=== PATIENT | female | born 1960 | race Caucasian/White ===

== ENCOUNTER 2020-08-25 10:07 | Outpatient (REF) | payer BC, SELFPAY ==
--- NOTE | ~2020-08-25 | US_ITS ---
EXAMINATION: US VENOUS ULTRASOUND WITH DOPPLER LOWER EXTREMITY, RIGHT CLINICAL INFORMATION: Localized edema. COMPARISON: None TECHNIQUE: Ultrasound of the deep veins is performed from the hip to the calf with compression sonography and color and pulse Doppler assessment. Spectral analysis with color-flow imaging is performed. FINDINGS: There is normal venous compression and respiratory variation and augmented flow. The visualized common femoral vein, superficial femoral vein, profunda femoral vein, popliteal vein, and the trifurcation region shows no evidence of deep venous thrombosis. There is no significant popliteal fossa cyst. There is a small Arvizu's cyst measuring 4.7 x 1.2 x 3.4 cm along the medial aspect of the popliteal fossa. If the patient's symptoms persist, follow-up ultrasound in 5 days 7 days might be of value to exclude proximal propagation from a nonvisualized calf vein. US/US venous duplex LE RT IMPRESSION: No evidence of DVT. Small Arvizu's cyst measuring 4.7 x 1.2 x 3.4 cm.
--- NOTE | ~2020-08-25 | XR_ITS ---
EXAMINATION: XR KNEE, RIGHT CLINICAL INFORMATION: Pain COMPARISON: Right lower leg x-ray October 2013. TECHNIQUE: Two views of the right knee. FINDINGS: There is a 3 component knee replacement in satisfactory position. No fracture, dislocation or x-ray evidence of loosening is seen. There is a small joint effusion. XR/XR knee RT 2V IMPRESSION: Satisfactory appearance of right knee replacement.
== END 2020-08-25 10:08 | disposition home or self-care (01) ==
LOC: HO.US 10:07
PROVIDERS: PCP Internal Medicine; Visit Provider Internal Medicine
DX: Z00.00 Encounter for general adult medical examination without abnormal findings (principal); R09.89 Other specified symptoms and signs involving the circulatory and respiratory systems; R60.0 Localized edema; E11.9 Type 2 diabetes mellitus without complications; E03.9 Hypothyroidism, unspecified; M25.561 Pain in right knee; Z20.822 Contact with and (suspected) exposure to COVID-19
CPT/HCPCS: 73560; 93971; U0003; U0005

== ENCOUNTER 2020-08-29 07:21 | Outpatient (REF) | payer BC, SELFPAY ==
[2020-08-29 08:47] LABS: Eosinophils Absolute Auto 0.2 X10*3/uL (0.0-0.4); Eosinophils Percent Auto 4.2 % (0-4); Hematocrit 36.8 % (37-47); Hemoglobin 12.2 g/dl (12.0-16.0); Imm Gran Abs Auto 0.01 X10*3/uL (0.00-0.03); Imm Gran Pct Auto 0.3 % (0.0-0.4); Lymphocytes Absolute Auto 1.4 X10*3/uL (1.2-4.9); Lymphocytes Percent Auto 37.5 % (20-40); MANUAL DIFF FLAG SCAN; Mean Corpuscular HGB Conc 33.2 g/dl (31.0-35.0); Mean Corpuscular Hemoglobin 29.1 pg (27.0-33.0); Mean Corpuscular Volume 87.8 fL (80-98); Mean Platelet Volume 9.7 fL (9.4-12.3); Monocytes Absolute Auto 0.4 X10*3/uL (0.1-1.2); Monocytes Percent Auto 9.1 % (2-11); Neutrophils Absolute Auto 1.8 X10*3/uL (2.0-8.3); Neutrophils Percent Auto 47.9 % (45-73); Platelet Count 232 X10*3/uL (160-400); Red Blood Count 4.19 X10*6/uL (4.20-5.50); Red Cell Distribution Width 14.7 % (11.0-16.0); SCAN SMEAR FLAG 1; White Blood Count 3.8 X10*3/uL (4.8-10.8)
[2020-08-29 09:06] LABS: SLIDE REVIEW VERIFIED
[2020-08-29 09:21] LABS: Alanine Aminotransferase 17 U/L (0-31); Albumin Level 4.1 g/dL (3.5-5.0); Alkaline Phosphatase 87 U/L (39-117); Anion Gap 11 (12-20); Aspartate Amino Transferase 23 U/L (5-31); Bilirubin Total 0.6 mg/dL (0.0-1.0); Blood Urea Nitrogen 12 mg/dL (9-16); Carbon Dioxide 28 mmol/L (22-29); Chloride 104 mmol/L (96-108); Cholesterol 176 mg/dL; Estimated Glomerular Filt Rate 56; Glucose Fasting 88 mg/dL (60-99); HDL Cholesterol 66 mg/dL; LDL Cholesterol Calculated 98 mg/dl; Sodium 139 mmol/L (135-145); Total Protein 6.2 g/dL (6.5-8.0); Triglycerides 62 mg/dL
== END 2020-08-29 07:22 | disposition home or self-care (01) ==
LOC: HO.LAB 07:21
PROVIDERS: PCP Internal Medicine; Visit Provider Internal Medicine
DX: Z00.00 Encounter for general adult medical examination without abnormal findings (principal); E03.9 Hypothyroidism, unspecified; E11.9 Type 2 diabetes mellitus without complications
CPT/HCPCS: 36415; 80053; 80061; 84443; 85025

== ENCOUNTER → 2020-09-02 10:53 | Outpatient (BNVA) | payer BC, SELFPAY | PROVIDERS: PCP Internal Medicine; Visit Provider Orthopaedic Surgery ==

== ENCOUNTER 2021-03-06 13:17 | Outpatient (REF) | payer BC, SELFPAY ==
--- NOTE | ~2021-03-06 | XR_ITS ---
EXAMINATION: XR KNEE, RIGHT CLINICAL INFORMATION: Pain right knee. Prior arthroplasty. COMPARISON: Radiographs right knee 08/25/2020. TECHNIQUE: Axial patellar view is performed. FINDINGS: There is been prior total knee arthroplasty. The visualized hardware is intact. There is no fracture or destructive process or periostitis. The retropatellar prosthesis is slightly lateralized in position. XR/XR knee RT 1V IMPRESSION: 1. Hardware intact. No destructive process. 2. Mild lateralization patella.
== END 2021-03-06 13:18 | disposition home or self-care (01) ==
LOC: HO.HOSX 13:17
PROVIDERS: PCP Internal Medicine; Visit Provider Physician Assistant
DX: S83.521D Sprain of posterior cruciate ligament of right knee, subsequent encounter (principal); Z96.651 Presence of right artificial knee joint
CPT/HCPCS: 73560

== ENCOUNTER 2021-03-09 15:42 | Outpatient (REF) | payer BC, SELFPAY ==
[2021-03-09 16:21] LABS: C Reactive Protein 0.05 mg/dL (< or = 0.50)
[2021-03-09 16:36] LABS: Erythrocyte Sedimentation Rate 2 MM/HR (0-20)
== END 2021-03-09 15:43 | disposition home or self-care (01) ==
LOC: HO.LAB 15:42
PROVIDERS: PCP Internal Medicine; Visit Provider Orthopaedic Surgery
DX: M25.569 Pain in unspecified knee (principal); S83.529A Sprain of posterior cruciate ligament of unspecified knee, initial encounter; Z96.651 Presence of right artificial knee joint
CPT/HCPCS: 36415; 85652; 86140

== ENCOUNTER → 2021-04-15 09:49 | Outpatient (BNVA) | payer BC, SELFPAY | PROVIDERS: PCP Internal Medicine; Visit Provider Orthopaedic Surgery ==

== ENCOUNTER → 2021-05-13 15:10 | Outpatient (REF) | payer BC, SELFPAY ==
--- NOTE | 2021-05-13 15:16 | ECG_ITS ---
Test Reason : PREOP Blood Pressure : / mmHG Vent. Rate : 058 BPM Atrial Rate : 058 BPM P-R Int : 188 ms QRS Dur : 080 ms QT Int : 444 ms P-R-T Axes : 063 023 030 degrees QTc Int : 435 ms Sinus bradycardia T inversion anteroseptal leads- ischemia vs non-specific finding When compared with ECG of 28-JUL-2004 11:26, T inversion more prominent Referred By: Luis Daniel Lay Electronically Signed By:VLADISLAV IRVIN
[2021-05-13 15:32] LABS: MANUAL DIFF FLAG NO
[2021-05-13 15:44] LABS: Basophils Percent Auto 0.5 % (0-2); Eosinophils Absolute Auto 0.1 X10*3/uL (0.0-0.4); Eosinophils Percent Auto 1.3 % (0-4); Hematocrit 36.2 % (37.0-47.0); Hemoglobin 12.5 g/dl (12.0-16.0); Imm Gran Abs Auto 0.01 X10*3/uL (0.00-0.03); Imm Gran Pct Auto 0.2 % (0.0-0.4); Lymphocytes Absolute Auto 2.3 X10*3/uL (1.2-4.9); Lymphocytes Percent Auto 37.8 % (20-40); Mean Corpuscular HGB Conc 34.5 g/dl (31.0-35.0); Mean Corpuscular Hemoglobin 30.7 pg (27.0-33.0); Mean Corpuscular Volume 88.9 fL (80.0-98.0); Mean Platelet Volume 9.6 fL (9.4-12.3); Monocytes Absolute Auto 0.4 X10*3/uL (0.1-1.2); Monocytes Percent Auto 7.3 % (2-11); Neutrophils Absolute Auto 3.2 x10*3/uL (2.0-8.3); Neutrophils Percent Auto 52.9 % (45-73); Platelet Count 296 X10*3/uL (160-400); Red Blood Count 4.07 X10*6/uL (4.20-5.50); Red Cell Distribution Width 12.4 % (11.0-16.0)
[2021-05-13 16:25] LABS: Anion Gap 11 (12-20); Blood Urea Nitrogen 20 mg/dL (9-16); Calcium 9.3 mg/dL (8.4-10.2); Carbon Dioxide 28 mmol/L (22-29); Chloride 100 mmol/L (96-108); Estimated Glomerular Filt Rate > 60; Glucose Random 110 mg/dL (60-115); Potassium 4.1 mmol/L (3.3-5.1); Sodium 135 mmol/L (135-145)
== END ==
LOC: HO.CARD 15:10
PROVIDERS: PCP Internal Medicine; Visit Provider Orthopaedic Surgery
DX: Z01.810 Encounter for preprocedural cardiovascular examination (principal); Z01.812 Encounter for preprocedural laboratory examination
CPT/HCPCS: 36415; 80048; 85025; 93005

== ENCOUNTER → 2021-05-14 11:19 | Outpatient (BNVA) | payer BC, SELFPAY | PROVIDERS: PCP Internal Medicine; Visit Provider Physician Assistant | DX: Z13.89 Encounter for screening for other disorder (principal) ==

== ENCOUNTER 2021-05-19 06:32 | Inpatient (IN) | payer BC, SELFPAY ==
[2021-05-05 08:15] VITALS: BMI 26.6
[2021-05-14 16:52] LABS: MRSA Nasal PCR NEGATIVE (Negative); SA Nasal PCR NEGATIVE (Negative)
--- NOTE | 2021-05-18 08:48 | P.CONAN_ITS ---
Documented by User: Francisca Henson NP 05/18/21 08:57 HPI - Anesthesia Eval Consult details Narrative: 60yo F for Right Knee Total Revision Optimized per PCP s/p R TKA 2004 [facility] Active Problems Active Problems: All Active Problems (Updated 05/14/21 @ 18:44 by Lore Vargas PA-C) Failed arthroplasty (Acute) Physical exam (Acute) Leg pain (Acute) History of total right knee replacement (TKR) (Acute) Knee pain (Acute) Tear of PCL (posterior cruciate ligament) of knee (Acute) Pre-op exam (Acute) Hyperlipidemia (Acute) Past Medical History Medical History History of skin cancer Hx of migraines Hyperlipidemia Family History Family History Mother No problems noted. Father No problems noted. Son Substance use disorder Surgical History Surgical History History of bunionectomy of left great toe History of carpal tunnel surgery of right wrist History of hysterectomy History of meniscectomy of right knee History of total right knee replacement Hx of colonoscopy Social History Social History Housing: House Are you a primary menagerie caretaker to a significant other at home: No Do you presently have visiting nurse or other home services: No Patient Tobacco Use Status: Never used Tobacco e-Cigarette/Vaping Use: Never Used Second Hand Smoke Exposure: No Use of substances other than those prescribed or required for medical reasons: No Have you been hit, kicked, punched, or otherwise hurt by someone within the past year? 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 aureus Screen NEGATIVE Nasal MRSA/S.aureus Interp SEE NOTE Blood Type O Positive Antibody Screen NEGATIVE Laboratory Tests 05/13/21 05/13/21 15:31 15:31 WBC 6.0 Hgb 12.5 Hct 36.2 L Plt Count 296 Sodium 135 Potassium 4.1 Chloride 100 Carbon Dioxide 28 BUN 20 H Creatinine 0.86 Narrative Narrative: EKG 04/2021 Vent. Rate : 058 BPM ? ? Atrial Rate : 058 BPM ?? P-R Int : 188 ms? QRS Dur : 080 ms ? ? QT Int : 444 ms ? ? ? P-R-T Axes : 063 023 030 degrees ?? QTc Int : 435 ms ? Sinus bradycardia T inversion anteroseptal leads- ischemia vs non-specific finding When compared with ECG of 28-JUL-2004 11:26, T inversion more prominent? Assessment and Plan Assessment Anesthesia Assessment: Chart Reviewed Documented by User: Robles Rivera MD 05/19/21 08:53 PMFSH Past Medical History Medical History History of skin cancer Hx of migraines Hyperlipidemia Family History Family History Mother No problems noted. Father No problems noted. Son Substance use disorder Family history of problems with anesthesia: No Surgical History Surgical History History of bunionectomy of left great toe History of carpal tunnel surgery of right wrist History of hysterectomy History of meniscectomy of right knee History of total right knee replacement Hx of colonoscopy History of Problems with Anesthesia: No Social History Social History Housing: House Are you a primary menagerie caretaker to a significant other at home: No Do you presently have visiting nurse or other home services: No Patient Tobacco Use Status: Never used Tobacco e-Cigarette/Vaping Use: Never Used Second Hand Smoke Exposure: No Use of substances other than those prescribed or required for medical reasons: No Have you been hit, kicked, punched, or otherwise hurt by someone within the past year? 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: No Hearing needs: No Vision needs: No Meds Allergies Allergy/AdvReac Type Severity Reaction Status Date / Time doxycycline [DOXYCYCLINE] Allergy Unknown RASH Verified 05/19/21 06:37 Exam Airway Mallampati Class: II TM Dist: >3cm Neck ROM: Full Loose/Missing/Broken Teeth: No Assessment and Plan Assessment Anesthesia Assessment: Anesthesia Plan Discussed Final Anesthetic Review Family History of Problems with Anesthesia: No History of Problems with Anesthesia: No NPO: Yes ASA Class: II Final Preanesthetic Review: No Changes in Pt Med Stat, Meds/Allgs Chart Reviewed, Consent Obtained/Reviewed and Anes Risks/Benef Reviewed Patient Risk: Low Procedure Risk: Intermediate Anesthetic Plan Anesthetic Plan: MAC:, Spinal and Regional Block Disposition: Standard PACU
[2021-05-19] VITALS (9 sets, daily range): BP systolic 92–127; BP diastolic 51–66; PULSE 62–80; RESP 10–18; TEMP 36.3–36.9; O2SAT 96–100
--- NOTE | ~2021-05-19 | XR_ITS ---
EXAMINATION: XR KNEE, RIGHT CLINICAL INFORMATION: Post right knee arthroplasty COMPARISON: Previous x-rays July 2020 and February 2021 TECHNIQUE: Portable AP and crosstable lateral views of the right knee. FINDINGS: There is a 3 component right knee replacement. There is new cement seen adjacent to the femoral and tibial components. No fracture or dislocation is seen. There are postoperative changes to the soft tissues. XR/XR knee RT 2V IMPRESSION: Right knee replacement.
--- NOTE | ~2021-05-19 | XR_ITS ---
EXAMINATION: XR KNEE, RIGHT CLINICAL INFORMATION: Post right knee replacement COMPARISON: Previous x-rays from earlier the same day TECHNIQUE: 8 intraoperative views of the right knee. FINDINGS: There is a 3 component right knee replacement. There is cement adjacent to the femoral and tibial components. There is a spacer between the femoral and tibial components. No fracture or dislocation is seen. There are postoperative changes to the soft tissues. XR/XR knee RT 2V IMPRESSION: Fluoroscopy guidance for revision of right knee replacement.
[2021-05-19 07:16] LABS: COVID-19 Test Negative (Negative)
[2021-05-19] MEDS: Lactated Ringers 1,000 ML 100 ML IVCONT ×2 (07:22→16:56)
--- NOTE | 2021-05-19 07:38 | MHC.SHP ---
Pre-Procedural Eval Section A Date of Service: 05/19/21 The patient is an INPATIENT: No Changes since office visit: No Cold of Flu in the past 2 weeks, No New Medical Problems, No Changes in Medication and No Patient answered all questions The History & Physical has been completed within 30 days and I have reviewed it.: Yes Section B Chief Complaint: REVISION RT TKA Allergies: Allergies Allergy/AdvReac Type Severity Reaction Status Date / Time doxycycline [DOXYCYCLINE] Allergy Unknown RASH Verified 05/19/21 06:37 Plan I have reviewed the history and physical and performed a pertinent physical examination on my patient. No changes have occurred unless specified.
[2021-05-19] MEDS: Ketorolac Tromethamine 30 MG/ML VIAL 15 MG IVPUSH (14:38)
[2021-05-19] MEDS: oxyCODONE HCl Immed Release 5 MG TABLET PO (14:39)
[2021-05-19] MEDS: ceFAZolin Sodium/Dextrose,Iso 2 GM/50 ML PIGGYBACK IV (15:04)
--- NOTE | 2021-05-19 15:10 | PC.NURSE ---
maria del rosario steel gave nurse to nurse report
--- NOTE | 2021-05-19 16:36 | P.BOP_ITS ---
Brief Operative Note Date of Service: 05/19/21 Pre-op diagnosis: right knee prosthetic instability Post-op diagnosis: same Procedure: Revision right TKA Implants: [employer] TS Size 1 femur with 15 mm distal and 5 mm posterior augments, Size 1 tibia with 5 mm augment. 29 a patella, 31TS insert Surgeon: Luis Daniel Lay MD Anesthesia: regional and spinal Was an [employer] District Clerk used for this Procedure?: Yes [employer] Clerk: Lore Vargas Estimated blood loss (mL): 300 IV fluids (mL): 2,000 Pathology: none sent Condition: stable Disposition: PACU
--- NOTE | 2021-05-19 17:22 | P.CONIM_ITS ---
History of Present Illness Data of Consult Service Date: 05/19/21 Primary Care Provider: Donald Knox MD HPI Reason for consult: hld 60F prsented for elective right total knee revision, she has history of HLD c ontrolled with lipitor. doing well postop, denies chest pain, fever, chills, sob. Review of Systems Review of Systems: Yes all other systems are reviewed and are negative [facility] Medical History History of skin cancer Hx of migraines Hyperlipidemia Family History Mother No problems noted. Father No problems noted. Son Substance use disorder Surgical History History of bunionectomy of left great toe History of carpal tunnel surgery of right wrist History of hysterectomy History of meniscectomy of right knee History of total right knee replacement Hx of colonoscopy Social History Household Members: Spouse Housing: House Are you a primary primary care nurse to a significant other at home: No Do you presently have visiting nurse or other home services: No Patient Tobacco Use Status: Never used Tobacco e-Cigarette/Vaping Use: Never Used Second Hand Smoke Exposure: No Use of substances other than those prescribed or required for medical reasons: No Have you been hit, kicked, punched, or otherwise hurt by someone within the past year? If so, by whom?: No Do you feel safe in your current relationship?: Yes Is there a partner from a previous relationship who is making you feel unsafe now?: No Are you made to feel afraid or neglected: No Are you DNR?: No Advance Directives: No Advance Directives Information Provided: Yes (Given with Pre-op information) Advance Directives on File: No Do you have thoughts of harming others: None Do you have a plan to hurt others: No Plan Recently lost weight without trying: No Eating poorly because of decreased appetite: No Nutrition Risks: No Nutritional Risk Patient : No : No Poor oral hygiene: No ([place]) service: No Current occupational status: employed 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[place] 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: No Hearing needs: No Vision needs: No Meds Allergies Allergy/AdvReac Type Severity Reaction Status Date / Time doxycycline [DOXYCYCLINE] Allergy Unknown RASH Verified 05/19/21 06:37 Active Medications: Current Medications Acetaminophen (Acetaminophen 325 Mg Tablet) 650 mg PO Q6H PRN PRN Reason: Pain, Mild (Pain Scale 1-3) Aspirin (Aspirin 325 Mg Tablet) 325 mg PO BID [facility] Atorvastatin Calcium (Atorvastatin Calcium 20 Mg Tablet) 20 mg PO DAILY [facility] Celecoxib (Celecoxib 200 Mg Capsule) 200 mg PO BID [facility] Docusate Sodium (Docusate Sodium 100 Mg Capsule) 100 mg PO BID [facility] Hydromorphone HCl (Hydromorphone Hcl 1 Mg/Ml Syringe) 0.25 mg IVPUSH Q4H PRN; Protocol PRN Reason: Pain, Severe (Pain Scale 7-10) Lactated Ringer's (Lr) 1,000 mls @ 100 mls/hr IVCONT .Q10H [facility] Last Admin: 05/19/21 16:56 Dose: 100 mls/hr Documented by: Cefazolin Sodium/Dextrose (Ancef) 2 gm in 50 mls @ 100 mls/hr IV POSTOP [facility] Last Infusion: 05/19/21 16:40 Dose: Infused Documented by: Ondansetron HCl (Ondansetron Hcl 4 Mg/2 Ml Vial) 4 mg IVPUSH Q8H PRN PRN Reason: Nausea and Vomiting Oxycodone HCl (Oxycodone Hcl Immed Release 5 Mg Tablet) 5 mg PO Q4H PRN PRN Reason: Pain, Moderate (Pain Scale 4-6 Oxycodone HCl (Oxycodone Hcl Er 10 Mg Tab.Er.12h) 10 mg PO BID [facility] Sodium Chloride (0.9 % Sodium Chloride Flush 3 Ml Syringe) 3 ml IVFLUSH QSHIFT [facility] Last Admin: 05/19/21 16:35 Dose: Not Given Documented by: Trazodone HCl (Trazodone Hcl 50 Mg Tablet) 50 mg PO BEDTIME [facility] Physical Exam Vital Signs and Narrative: Vital Signs: Last Vital Signs Temp 97.3 F 05/19/21 15:41 Pulse 67 05/19/21 15:41 Resp 16 05/19/21 15:41 BP 107/59 L 05/19/21 15:41 Pulse Ox 99 05/19/21 15:41 BMI result Body Mass Index 26.6 General: AO X 3, no acute distress Resp: CTA bilateral, no accessory muscles used CVS: S1,S2,RRR GI: soft, non tender, non distended Neuro: motor grossly intact, alert Psych: appropriate affect, appropriate insight Results Labs Labs: Laboratory Results - last 24 hr 05/19/21 06:35 COVID-19 (NAUN) Negative COVID-19 Clin Com See Note Imaging Radiologist's Impressions: Impressions Knee X-Ray 05/19/21 11:50 IMPRESSION: Right knee replacement. Knee X-Ray 05/19/21 13:43 IMPRESSION: Fluoroscopy guidance for revision of right knee replacement. Assessment and Plan (1) Hyperlipidemia: Status: Acute Plan 60F presented for right knee revision HLD continue statin patient appears medically stable, please recall as needed.
--- NOTE | 2021-05-19 19:17 | PC.NURSE ---
1814 Got patient oob, started ambulating with a walker when patient c/o dizziness and started wheezing saying she couldnt breath. Sat patint in chair and got oxygen, she was able to take slow breaths and wheezing subsided. Dr Moreno was called into the room, vss, B/P 102 54 manual O2 sats 100%. Pt back in bed, feels much better.
[2021-05-19] MEDS: Docusate Sodium 100 MG CAPSULE PO (20:17)
[2021-05-19] MEDS: Celecoxib 200 MG CAPSULE PO (20:17)
[2021-05-19] MEDS: oxyCODONE HCl ER 10 MG TAB.ER.12H PO (20:17)
[2021-05-19] MEDS: traZODone HCL 50 MG TABLET PO (20:18)
[2021-05-19] MEDS: HYDROmorphone HCl 1 MG/ML SYRINGE 0.25 MG IVPUSH (20:18)
[2021-05-19] MEDS: 0.9 % Sodium Chloride Flush 3 ML SYRINGE IVFLUSH (20:21)
[2021-05-20] VITALS (13 sets, daily range): BP systolic 85–133; BP diastolic 46–65; PULSE 62–74; RESP 14–18; TEMP 36.8–37.7; O2SAT 96–100
[2021-05-20 05:42] LABS: MANUAL DIFF FLAG NO
[2021-05-20 05:46] LABS: Basophils Percent Auto 0.3 % (0-2); Hematocrit 26.8 % (37.0-47.0); Hemoglobin 9.1 g/dl (12.0-16.0); Imm Gran Abs Auto 0.02 X10*3/uL (0.00-0.03); Imm Gran Pct Auto 0.2 % (0.0-0.4); Lymphocytes Absolute Auto 1.3 X10*3/uL (1.2-4.9); Mean Corpuscular Hemoglobin 30.5 pg (27.0-33.0); Mean Corpuscular Volume 89.9 fL (80.0-98.0); Mean Platelet Volume 10.1 fL (9.4-12.3); Monocytes Absolute Auto 0.9 X10*3/uL (0.1-1.2); Monocytes Percent Auto 9.3 % (2-11); Neutrophils Absolute Auto 7.2 x10*3/uL (2.0-8.3); Neutrophils Percent Auto 76.2 % (45-73); Platelet Count 207 X10*3/uL (160-400); Red Blood Count 2.98 X10*6/uL (4.20-5.50); Red Cell Distribution Width 12.8 % (11.0-16.0); White Blood Count 9.5 X10*3/uL (4.8-10.8)
[2021-05-20] MEDS: Lactated Ringers 1,000 ML 100 ML IVCONT ×2 (05:50→14:37)
[2021-05-20 06:06] LABS: Anion Gap 11 (12-20); Blood Urea Nitrogen 20 mg/dL (9-16); Calcium 8.1 mg/dL (8.4-10.2); Carbon Dioxide 24 mmol/L (22-29); Chloride 105 mmol/L (96-108); Creatinine Clr Calc Pharmacy 64.9; Estimated Glomerular Filt Rate > 60; Glucose Fasting 108 mg/dL (60-99); Potassium 4.5 mmol/L (3.3-5.1); Sodium 135 mmol/L (135-145)
[2021-05-20] MEDS: HYDROmorphone HCl 1 MG/ML SYRINGE 0.25 MG IVPUSH ×2 (07:40→13:57)
[2021-05-20] MEDS: Celecoxib 200 MG CAPSULE PO ×2 (07:44→21:10)
[2021-05-20] MEDS: oxyCODONE HCl ER 10 MG TAB.ER.12H PO ×2 (07:44→21:11)
[2021-05-20] MEDS: Docusate Sodium 100 MG CAPSULE PO ×2 (07:44→21:10)
[2021-05-20] MEDS: Atorvastatin Calcium 20 MG TABLET PO (07:44)
[2021-05-20] MEDS: Aspirin 325 MG TABLET PO ×2 (12:24→21:10)
--- NOTE | 2021-05-20 12:24 | P.PNOP_ITS ---
Subjective Subjective Date of Service: 05/20/21 Interval history: POD 1 s/p Revision RT TKA No overnight events Did get up to use rest room once and felt wheezy denies cp. sob. palpitations Physical Exam Vital Signs: Vital Signs: Last Vital Signs Temp 98.2 F 05/20/21 11:32 Pulse 69 05/20/21 11:32 Resp 18 05/20/21 11:32 BP 101/46 L 05/20/21 11:32 Pulse Ox 100 05/20/21 11:32 BMI result Body Mass Index 26.6 Const: General: cooperative, healthy appearing and no acute distress Resp: Effort & Inspection: normal respiratory effort and able to speak in complete sentences Cardio: Rate: regular rate Peripheral pulses: Peripheral pulses 2+ throughout GI: Palpation (GI): Soft to palpation Skin: General skin exam: no rashes or lesions noted Extrem: Other: incision clean dry and intact. Holly intact. No erythema or joint effusion. Calf supple nontender. Neurovascularly intact. Procedures Date of Service Date of Service: 05/20/21 Progress Note: A&P Assessment and plan (1) Status post revision of total knee: Status: Acute Assessment and Plan: * Continue pain mgmnt * Begin Aspirin for dvt ppx * begin PT for RT TKA * Dispo planning-Pending PT eval, pain mgmnt Fall Risk Details Current Medications: Current Medications Acetaminophen (Acetaminophen 325 Mg Tablet) 650 mg PO Q6H PRN PRN Reason: Pain, Mild (Pain Scale 1-3) Aspirin (Aspirin 325 Mg Tablet) 325 mg PO BID [facility] Atorvastatin Calcium (Atorvastatin Calcium 20 Mg Tablet) 20 mg PO DAILY [facility] Last Admin: 05/20/21 07:44 Dose: 20 mg Documented by: Celecoxib (Celecoxib 200 Mg Capsule) 200 mg PO BID [facility] Last Admin: 05/20/21 07:44 Dose: 200 mg Documented by: Docusate Sodium (Docusate Sodium 100 Mg Capsule) 100 mg PO BID ON [facility] Last Admin: 05/20/21 07:44 Dose: 100 mg Documented by: Hydromorphone HCl (Hydromorphone Hcl 1 Mg/Ml Syringe) 0.25 mg IVPUSH Q4H PRN; Protocol PRN Reason: Pain, Severe (Pain Scale 7-10) Last Admin: 05/20/21 07:40 Dose: 0.25 mg Documented by: Lactated Ringer's (Lr) 1,000 mls @ 100 mls/hr IVCONT .Q10H ON [facility] OF [facility] Last Admin: 05/20/21 05:50 Dose: 100 mls/hr Documented by: Cefazolin Sodium/Dextrose (Ancef) 2 gm in 50 mls @ 100 mls/hr IV POSTOP ON [facility] OF [facility] Last Infusion: 05/19/21 16:40 Dose: Infused Documented by: Ondansetron HCl (Ondansetron Hcl 4 Mg/2 Ml Vial) 4 mg IVPUSH Q8H PRN PRN Reason: Nausea and Vomiting Oxycodone HCl (Oxycodone Hcl Immed Release 5 Mg Tablet) 5 mg PO Q4H PRN PRN Reason: Pain, Moderate (Pain Scale 4-6 Oxycodone HCl (Oxycodone Hcl Er 10 Mg Tab.Er.12h) 10 mg PO BID [facility] Last Admin: 05/20/21 07:44 Dose: 10 mg Documented by: Sodium Chloride (0.9 % Sodium Chloride Flush 3 Ml Syringe) 3 ml IVFLUSH QSHIFT ON LICENSE OF [facility] Last Admin: 05/20/21 07:43 Dose: Not Given Documented by: Trazodone HCl (Trazodone Hcl 50 Mg Tablet) 50 mg PO BEDTIME ON [facility] OF [facility] Last Admin: 05/19/21 20:18 Dose: 50 mg Documented by: Time Spent With Patient Time: Total time spent is greater than 50% in coordination of care (as documented) at patient's floor/unit and/or counseling patient: Quality Stroke Does the patient have a stroke diagnosis?: No VTE Prior VTE?: No VTE Risk Level:: Surgical - very high VTE Device Contraindication: N/A - Device Ordered VTE Drug Contraindication: N/A - Med Ordered
--- NOTE | 2021-05-20 14:38 | HO.POSTANES ---
Post Anesthesia Evaluation Post Anesthesia Evaluation Vital Signs: Vital Signs Temp Pulse Resp BP Pulse Ox 05/20/21 11:32 98.2 F 69 18 101/46 L 100 05/20/21 07:21 98.8 F 65 18 106/47 L 100 05/20/21 03:48 98.2 F 64 16 85/50 L 96 Anesthesia: Spinal and Nerve Block Mental Status: Awake Pain Control: Satisfactory Nausea/Vomiting: None Hydration: Adequate Anesthesia-Related Issues: No Anes. Related Issues
[2021-05-20] MEDS: oxyCODONE HCl Immed Release 5 MG TABLET PO (18:44)
[2021-05-20] MEDS: Acetaminophen 325 MG TABLET 650 MG PO (19:56)
[2021-05-20] MEDS: traZODone HCL 50 MG TABLET PO (21:12)
[2021-05-21 03:53] VITALS: BP 114/64; PULSE 82; RESP 14; TEMP 37.1; O2SAT 97
[2021-05-21] MEDS: Lactated Ringers 1,000 ML 100 ML IVCONT (04:11)
[2021-05-21 06:35] LABS: MANUAL DIFF FLAG NO
[2021-05-21 06:45] LABS: Basophils Absolute Auto 0.1 X10*3/uL (0.0-0.2); Basophils Percent Auto 0.6 % (0-2); Eosinophils Percent Auto 0.4 % (0-4); Hematocrit 31.6 % (37.0-47.0); Hemoglobin 10.7 g/dl (12.0-16.0); Imm Gran Abs Auto 0.03 X10*3/uL (0.00-0.03); Imm Gran Pct Auto 0.4 % (0.0-0.4); Lymphocytes Absolute Auto 1.4 X10*3/uL (1.2-4.9); Lymphocytes Percent Auto 18.2 % (20-40); Mean Corpuscular HGB Conc 33.9 g/dl (31.0-35.0); Mean Corpuscular Volume 88.5 fL (80.0-98.0); Mean Platelet Volume 10.4 fL (9.4-12.3); Monocytes Absolute Auto 0.9 X10*3/uL (0.1-1.2); Monocytes Percent Auto 10.9 % (2-11); Neutrophils Absolute Auto 5.4 x10*3/uL (2.0-8.3); Neutrophils Percent Auto 69.5 % (45-73); Platelet Count 170 X10*3/uL (160-400); Red Blood Count 3.57 X10*6/uL (4.20-5.50); Red Cell Distribution Width 13.9 % (11.0-16.0); White Blood Count 7.8 X10*3/uL (4.8-10.8)
[2021-05-21 07:10] LABS: Anion Gap 8 (12-20); Blood Urea Nitrogen 13 mg/dL (9-16); Calcium 7.9 mg/dL (8.4-10.2); Carbon Dioxide 26 mmol/L (22-29); Chloride 107 mmol/L (96-108); Creatinine Clr Calc Pharmacy 76.8; Estimated Glomerular Filt Rate > 60; Glucose Fasting 103 mg/dL (60-99); Sodium 137 mmol/L (135-145)
[2021-05-21 07:46] VITALS: BP 119/64; PULSE 75; RESP 18; TEMP 37; O2SAT 99
--- NOTE | 2021-05-21 08:49 | MHC.CM.PN ---
PATIENT LIVES WITH HER SPOUSE/NEW HCP. NO DME OR VNA BUT SHE DOES AGREE TO [place] REFERRAL FOR HOME P.T. SHE HAS A CANE AND WALKER IN ANTICIPATION OF THIS SURGERY. SHE HAS BEEN COVID VACCINATED X 3 WITH THE PFIZER SERIES. SHE IS UNABLE TO RECALL THE DATES. SPOUSE IS IN ROOM TO PROVIDE TRANSPORTATION HOME.
[2021-05-21] MEDS: Celecoxib 200 MG CAPSULE PO (09:08)
[2021-05-21] MEDS: Aspirin 325 MG TABLET PO (09:08)
[2021-05-21] MEDS: 0.9 % Sodium Chloride Flush 3 ML SYRINGE IVFLUSH (09:08)
[2021-05-21] MEDS: Atorvastatin Calcium 20 MG TABLET PO (09:09)
[2021-05-21] MEDS: Docusate Sodium 100 MG CAPSULE PO (09:09)
[2021-05-21] MEDS: oxyCODONE HCl ER 10 MG TAB.ER.12H PO (09:09)
--- NOTE | 2021-05-21 09:19 | W.MHC.F2F ---
Service Date Service Date: 05/21/21 Encounter Date of encounter: 05/21/21 Reasons for Services Signs and symptoms assessed: right knee pain, weakness, difficulty with ambulation, unable to drive Reason for physical therapy: home safety and mobility, therapeutic exercises, restore joint function, gait/transfer training, ADL training and energy conservation Reason for occupational therapy: home safety and mobility, therapeutic exercises, restore joint function, gait/transfer training, ADL training and energy conservation MD Overseeing Care: Luis Daniel Lay Homebound: Leaving the home is medically contraindicated at this time without the asist of a device and/or another person due th the listed conditions above and below. Reason homebound: unsteady gait / fall risk, pain with ambulation, poor balance / fall risk and unable to drive Homebound supporting statement: Pt. is considered home bound due to recent surgery. Unable to drive, poor balance, poor gait mechanics. Certification: Based on the above findings, I certify that this patient is confined to the home and needs physical therapy and/or speech therapy, or continues to need occupational therapy. The patient is under my care, and I have initiated the establishment of the plan of care. The patient will be followed by a physician who will periodically review the plan of care.
--- NOTE | 2021-05-21 09:20 | P.DS_ITS ---
DS: Providers Provider Date of Service: 05/21/21 Date of admission: 05/19/21 06:32 Primary care physician: Donald Knox MD Consults: 05/19/21 16:29 Consult to Hospitalist Routine Consulting Provider: Hospitalist Reason For Exam: post op medical management- DS: Diagnosis Discharge Diagnosis (1) Status post revision of total knee: Status: Acute DS: Summary Hospital Course Hospital Course: The patient underwent a successful revision right total knee arthroplasty, she was transferred to PACU and then to the floor to recover. During their stay, their vitals were stable, afebrile at .98.6 POD 1 her H/H dropped to 9.1/26.8 and on discharge Labs were unremarkable, H/H 10.7/31.6. POD 1 she was started on ASA for DVT ppx, they also received PT services twice a day. Prior to discharge, their dressing was change, incision clean dry and intact, new Aquacel dressing applied and the plan was to be discharged home with vna svs Time Spent with Patient Time attestation: Total time spent providing and/or coordinating discharge services: Discharge coordination time: Less than 30 minutes Quality: Safe Use of Opioids Does Pt have an Active Cancer Diagnosis on the Problem List?: No Quality: Stroke Does the patient have a stroke diagnosis?: No Physical Exam Vital Signs: Vital Signs: Last Vital Signs Temp 98.6 F 05/21/21 07:46 Pulse 75 05/21/21 07:46 Resp 18 05/21/21 07:46 BP 119/64 05/21/21 07:46 Pulse Ox 99 05/21/21 07:46 BMI result Body Mass Index 26.6 Const: General: cooperative, healthy appearing and no acute distress Resp: Effort & Inspection: normal respiratory effort and able to speak in complete sentences Cardio: Rate: regular rate Peripheral pulses: Peripheral pulses 2+ throughout GI: Palpation (GI): Soft to palpation Skin: General skin exam: no rashes or lesions noted Extrem: Other: incision clean dry and intact. [place] intact. No erythema or joint effusion. Calf supple nontender. Neurovascularly intact. DS: Data Data Completed and Pending Labs on day of discharge: Laboratory Results - last 24 hr 05/20/21 05/21/21 05/21/21 12:42 05:53 05:53 WBC 7.8 RBC 3.57 L Hgb 10.7 L Hct 31.6 L MCV 88.5 MCH 30.0 MCHC 33.9 RDW 13.9 Plt Count 170 MPV 10.4 Immature Gran % (Auto) 0.4 Neut % (Auto) 69.5 Lymph % (Auto) 18.2 L Humphreys % (Auto) 10.9 Eos % (Auto) 0.4 Baso % (Auto) 0.6 Lymph # (Auto) 1.4 Humphreys # (Auto) 0.9 Eos # (Auto) 0.0 Baso # (Auto) 0.1 Abs Immat Gran (auto) 0.03 Absolute Neuts (auto) 5.4 Absolute Nucleated RBC 0.000 Nucleated RBC % (auto) 0.0 Sodium 137 Potassium 4.0 Chloride 107 Carbon Dioxide 26 Anion Gap 8 L BUN 13 Creatinine 0.65 Estim Creat Clear Calc 76.8 Estimated GFR > 60 Fasting Glucose 103 H Calcium 7.9 L Blood Type O Positive Antibody Screen NEGATIVE Crossmatch See Detail Discharge Plan Discharge Patient Disposition: Home Health Service Discharge Diagnosis: revision RT TKA Referrals: Gregoria Mcdermott PA-C [Physician Play Back Operator] - 2 Weeks (06/04/21 2:45 [facility] Gregoria Mcdermott PA-C) Discharge Medications: New docusate sodium 100 mg Capsule 100 mg PO BID 14 Days Qty: 28 0RF aspirin 325 mg Tablet 325 mg PO BID 42 Days Qty: 84 0RF oxycodone 5 mg Tablet 5 mg PO Q4H PRN (Reason: Pain, Moderate (Pain Scale 4-6) 7 Days Qty: 42 0RF acetaminophen 325 mg Tablet 650 mg PO Q6H PRN (Reason: Pain, Mild (Pain Scale 1-3)) 30 Days Qty: 240 0RF Continued atorvastatin 20 mg tablet 20 mg PO DAILY Qty: 90 8RF wrnrotcuzv-ndrafktmmhmwg-xybf 50-325-40 mg tablet 1 tab PO Q4H PRN (Reason: pain) Qty: 60 4RF trazodone 50 mg tablet 50 mg PO BEDTIME Qty: 60 5RF Discharge Orders: Discharge Order (Routine); Ordered 05/21/21 Ordered By: Lore Vargas Diet: regular diet Activity on Discharge: Use cane or walker Stand Alone Forms: Patient Portal Discharge page Care Plan Goals: Restore function of joint Health Concerns: Monitor BP Plan of Treatment: Physical Therapy Pain management DVT prophylaxis Assessment: Physical Therapy for Total knee arthroplasty: WBAT, gait training, ROM 0-12, quad strength * Limit stair climbing * No showering, no tub bath-keep dressing clean, dry and intact * No driving x6 weeks * Continue Aspirin twice a day x 6 weeks * Follow up with [facility] Orthopedics in 2 weeks: * --you will also have your first out patient PT eval on the day of your post op appt-so please plan on being in the office that day for an extended period of time.
--- NOTE | 2021-05-21 09:33 | MHC.CM.PN ---
PATIENT IS DC HOME TODAY WITH [facility] FOR HOME P.T. SPOUSE TO DESIGN ASSISTANT AWARE OF PLAN.
--- NOTE | 2021-06-05 15:57 | W.PM.OPN ---
Operative Note Operative Note Date of Service: 05/19/21 Narrative: Date of Service: 05/19/21 Pre-op diagnosis: right knee prosthetic instability Post-op diagnosis: same Procedure: Revision right TKA Implants: Maria Isabel Triathalon TS Size 1 femur with 15 mm distal and 5 mm posterior augments, Size 1 tibia with 5 mm augment. 29 a patella, 31TS insert Surgeon: Luis Daniel Lay MD Anesthesia: regional and spinal Was an Air Conditioning Insulation Installer used for this Procedure?: Yes Air Conditioning Insulation Installer: Lore Vargas Estimated blood loss (mL): 300 IV fluids (mL): 2,000 Pathology: none sent Condition: stable Disposition: PACU Procedure in detail: The patient was brought to the operating room and prepped and draped in standard sterile fashion. A time-out was called to identify proper site proper procedure proper surgeon and IV antibiotics were administered. 1 g of IV tranexamic acid was administered. I began by making a midline incision to the retinaculum and performed a medial parapatellar arthrotomy. The patella was translated laterally and the knee was flexed up. There was copious normal-appearing synovial fluid. The knee was grossly loose. I could translate anteriorly and posteriorly with no appreciable PCL. There was moderate medial to lateral instability as well. I used a sagittal saw to remove the base of the tibial component and then a small flexible osteotome to remove the pegs. There was mild to moderate bone loss of the tibial plateau. There was no evidence of infection or acute process occurring. I then turned my attention to the femur where I circumferentially disengage the femur from the underlying bone with a flexible osteotome. There was moderate bone loss. Once the femoral component was removed I removed all debris down to healthy-appearing bone. I then placed my cutting jig over the femur and made my anterior, posterior, chamfer cuts and the box cut. There was a moderate distal bone loss and therefore I placed 5 mm distal augments using the medial epicondyle for reference. I placed a trial femur and then turned my attention to the tibia where used to intramedullary guide to make a clean-up cut. Unfortunately again there was mrqd-od-eglgqouk bone loss and I trialed with a a tibial tray with augmentation. There were no 5 mm augment trials and so I had to trial with a 10 mm augment. I was initially satisfied with this and placed this along with my femoral component and poly insert . I took the knee through range of motion I was satisfied with the flexion and extension. I then turned my attention to the patella which was removed with sagittal saw and then the pegs were dug out with a curette. There was approximately 8 mm of remaining good quality bone. A clean up cut was performed and a trial patella was then placed. Again I took the knee through range of motion I was happy with the tracking and stability. I then opened my implants and placed a a 10 mm tibial and 5 mm femoral augments. Cement was mixed on the back table and the components were cemented in place. Prior to the cement being dry I felt that there was patella baja that I was not acceptable. Therefore I removed the femur and tibia and the excess cement which had not fully hardened. I then elected to lower the joint line and placed 5 mm tibial augment and 10 mm femoral augment. One bag of cement was mixed on the back table and the tibial component was implanted. Once the cement was dry all excess cement was removed and portable radiographs were taken at this time to confirm appropriate component position prior to femoral component implantation. A 2nd bag of bone cement was mixed on the back table and the femur was implanted in standard fashion while applying axial compression. The patella baja was improved and I trialed with various inserts. I had excellent range of motion, tracking and stability. The final insert was placed and a 3 minutes iodine soak with local TXA was performed. A Werewolf cautery wand was used to maintain hemostasis over the capsule and meniscal beds, the gutters and peripatellar soft tissues. The knee was then closed with a running Quill suture, a 3 0 Vicryl and melinda on the skin. Patient was then placed in sterile dressing and brought to recovery room in stable condition there were no known complications.
== END 2021-05-21 10:15 | disposition home health service (06) | DRG 320 ==
LOC: HO.SSSA 06:48 → HO.S3 13:49
PROVIDERS: Physician Assistant; Admitting Provider Orthopaedic Surgery; PCP Internal Medicine; Visit Provider Orthopaedic Surgery
PROC: 0SPC09Z Removal of Liner from Right Knee Joint, Open Approach (ICD-10-PCS; CPT 27487; principal; 2021-05-19 08:10)
DX: T84.022A Instability of internal right knee prosthesis, initial encounter (principal); E78.5 Hyperlipidemia, unspecified; Z20.822 Contact with and (suspected) exposure to COVID-19; Z85.828 Personal history of other malignant neoplasm of skin; Z88.1 Allergy status to other antibiotic agents; Z79.899 Other long term (current) drug therapy
CPT/HCPCS: 36415; 73560; 80048; 85025; 86850; 86900; 86901; 86923; 87635; 87640; 87641; 97110; 97116; 97162; 97530; C1713; C1776; J0690; J1100; J1170; J1885; J2250; J2405; P9016

== ENCOUNTER → 2021-06-04 14:38 | Outpatient (BNVA) | payer BC, SELFPAY | PROVIDERS: PCP Internal Medicine; Visit Provider Orthopaedic Surgery | DX: Z13.89 Encounter for screening for other disorder (principal) ==

== ENCOUNTER → 2021-07-03 09:22 | Outpatient (BNVA) | payer BC, SELFPAY | PROVIDERS: PCP Internal Medicine; Visit Provider Orthopaedic Surgery | DX: Z96.659 Presence of unspecified artificial knee joint (principal) ==

== ENCOUNTER 2021-07-14 07:00 | Outpatient (RCR) | payer BC, SELFPAY ==
--- NOTE | 2021-06-05 13:56 | MHC.PT.EP ---
[facility] [place] Office [place] Office [place] Office [address] Lainey Moreira [address] [phone] F: [phone] F: [phone] F: [phone] F: [phone] Physical Therapy Plan of Care Date of Evaluation: Date of Surgery: 05/19/21 Diagnosis: R TKA revision on 05/19/21 Assessment: pt presents to physical therapy evaluation at orthopedic office secondary to post-operative R TKA revision on 05/19/21. pt presents to physical therapy with pain, decreased range of motion, decreased strength, impaired functional mobility, impaired postural awareness, and gait deviations. pt is a good candidate for skilled PT due to age, potential remediation of impairments, typical disease/condition progression and prognosis, comorbidities, and motivation. pt would benefit from tailored strengthening and stretching exercise program, functional training, gait training, postural re-training, neuromuscular re-education, modalities as needed for pain, equipment safety demonstration. Frequency and Duration: The patient will be seen 2x/wk for 8 wks Short Term Goals: Pt will be I w/ HEP and symptom self-management to promote self-management of post-operative status. Pt will improve R knee extension to 0 degrees to normalize heel strike at initial contact w/ involved LE to reduce impairments w/ gait using LRAD. Pt will be mod I w/ ascending/descending curb/step w/ proper sequencing using LRAD to promote access to home and community for social participation. Care Home Goals: Pt will report a statistically significant improvement in self-reported outcome measure, LEFI, to promote return to PLOF. Pt will ascend/descend 23 stairs mod I w/ LRAD to promote access to basement for laundry. Treatment Plan: Modalities to reduce pain, spasms and effusion. Manual therapy to restore motion and function. Therapeutic exercise to improve strength and flexibility. Neuromuscular re-education for posture and balance. Therapeutic activities to return to functional activities of daily living. Electronically signed by: Marcela Lao PT, DPT Please sign and return to therapist. Thank you for your referral.
--- NOTE | 2021-09-02 08:26 | MHC.PT.DC ---
[facility] [place] Office [place] Office [place] Office [address] Lainey Moreira [address] [phone] F: [phone] F: [phone] F: [phone] F: [phone] Physical Therapy Discharge Report Diagnosis: R TKA revision on 05/19/21 Date of Surgery: 05/19/21 Date of Evaluation: 06/04/21 Date of Discharge: 09/02/21 Treatments to Date: 10 Cancellations to Date: 0 No Shows to Date: 0 Discharge Status: Achieved Goals Improved Function Independent with HEP Discharge Summary: Pt appropriate for d/c secondary to meeting all goals, full knee ROM 0-120*, and I with HEP. Electronically signed by: Kathia Dumont PT Please sign and return to therapist. Thank you for your referral.
== END 2021-09-02 08:26 | disposition home or self-care (01) ==
LOC: HO.PT 07:00
PROVIDERS: PCP Internal Medicine; Visit Provider Physician Assistant
DX: Z96.651 Presence of right artificial knee joint (principal)
CPT/HCPCS: 97110; 97112; 97162; 97530

== ENCOUNTER 2021-08-21 09:17 | Outpatient (REF) | payer BC, SELFPAY ==
--- NOTE | ~2021-08-21 | XR_ITS ---
EXAMINATION: XR KNEE, RIGHT XR KNEE STANDING, BILATERAL CLINICAL INFORMATION: Pain in the knee. COMPARISON: Right knee 05/19/2021. TECHNIQUE: Right knee 2 views. AP bilateral knee standing 1 view. FINDINGS: Bilateral AP Knee Standing: There is total right knee prosthesis with increased distance between the distal femoral and the proximal tibial prosthesis. No periprosthetic fracture or loose body seen. Mild reduction in medial and lateral compartment left knee joint space is seen. Right Knee: The right knee prosthesis is in alignment. There is increased distance in the right knee joint space likely secondary to decrease in leg length compared to the left side. There is mild suprapatellar joint effusion. No periprosthetic fracture. The soft tissues are normal. XR/XR knee RT 2V IMPRESSION: Total right knee prosthesis in alignment. The joint space right knee is increased likely secondary to short limb length. No periprostatic fracture or loosening suspected along the distal femur or the proximal tibia. Minimal reduction in medial and lateral compartment joint space left knee likely early degenerative changes.
--- NOTE | ~2021-08-21 | XR_ITS ---
EXAMINATION: XR KNEE, RIGHT XR KNEE STANDING, BILATERAL CLINICAL INFORMATION: Pain in the knee. COMPARISON: Right knee 05/19/2021. TECHNIQUE: Right knee 2 views. AP bilateral knee standing 1 view. FINDINGS: Bilateral AP Knee Standing: There is total right knee prosthesis with increased distance between the distal femoral and the proximal tibial prosthesis. No periprosthetic fracture or loose body seen. Mild reduction in medial and lateral compartment left knee joint space is seen. Right Knee: The right knee prosthesis is in alignment. There is increased distance in the right knee joint space likely secondary to decrease in leg length compared to the left side. There is mild suprapatellar joint effusion. No periprosthetic fracture. The soft tissues are normal. XR/XR knee standing BI IMPRESSION: Total right knee prosthesis in alignment. The joint space right knee is increased likely secondary to short limb length. No periprostatic fracture or loosening suspected along the distal femur or the proximal tibia. Minimal reduction in medial and lateral compartment joint space left knee likely early degenerative changes.
== END 2021-08-21 09:18 | disposition home or self-care (01) ==
LOC: HO.HOSX 09:17
PROVIDERS: Visit Provider Orthopaedic Surgery
DX: M25.561 Pain in right knee (principal); M25.562 Pain in left knee
CPT/HCPCS: 73560; 73565

== ENCOUNTER 2022-09-01 07:12 | Outpatient (REF) | payer BC, SELFPAY ==
[2022-09-01 08:21] LABS: Cholesterol 193 mg/dL; HDL Cholesterol 64 mg/dL; LDL Cholesterol Calculated 116 mg/dl; Triglycerides 65 mg/dL
== END 2022-09-01 07:13 | disposition home or self-care (01) ==
LOC: HO.LAB 07:12
PROVIDERS: PCP Internal Medicine; Visit Provider Internal Medicine
DX: E78.5 Hyperlipidemia, unspecified (principal)
CPT/HCPCS: 36415; 80061

== ENCOUNTER 2022-09-08 08:52 | Outpatient (AMB) | payer BC, SELFPAY ==
--- NOTE | 2022-09-08 08:56 | A.OFFPC_ITS ---
Vital Signs 09/08/22 08:57 Height 5 ft 2 in Weight 146 lb 6 oz BMI 26.8 BP 110/62 Blood Pressure Location Lt brachial Position Sitting Pulse 68 Pulse Source Pulse Oximeter Pulse Oximetry (%) 98 Intake Visit Reasons: Physical Exam Intake Note: pt is here for physical exam, pt's concern is weight unable to lose weight over the year Parcel Contractor Required: No Accompanied by: Self / Same As Patient Allergies doxycycline [DOXYCYCLINE] Allergy (Unknown, Verified 09/08/22 08:56) RASH Medication List - Last Reconciled 09/08/22 by Donald Knox MD acetaminophen 650 mg (2 x 325 mg) PO Q6H PRN 30 days aspirin 325 mg PO BID 42 days atorvastatin 20 mg PO DAILY trazodone 50 mg PO BEDTIME Tobacco use date assessed: 09/08/22 Dental Screening Dental Screen Date: 09/08/22 Did you have a dental visit in the last 12 months?: Yes Did you have a dental problem in the last 6 months where you did not have access to dental care?: No Was dental information given to patient?: Patient has dentist HPI Physical Exam HPI Details hyperlipidemia on rx; doing well PFSH Medical History History of skin cancer Hx of migraines Hyperlipidemia Surgical History History of bunionectomy of left great toe History of carpal tunnel surgery of right wrist History of hysterectomy History of meniscectomy of right knee History of total right knee replacement Hx of colonoscopy Family History Mother No problems noted. Father No problems noted. 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 1. Little interest or pleasure in doing things: not at all 2. Feeling down, depressed, or hopeless: not at all 3. Trouble falling or staying asleep, or sleeping too much: not at all 4. Feeling tired or having little energy: not at all 5. Poor appetite or overeating: not at all 6. Feeling bad about yourself - or that you are a failure or have let yourself or your family down: not at all 7. Trouble concentrating on things, such as reading the newspaper or watching television: not at all 8. Moving or speaking so slowly that other people could have noticed. Or the opposite - being so fidgety or restless that you have been moving around a lot more than usual: not at all 9. Thoughts that you would be better off or of hurting yourself in some way: not at all Total score: 0 Depression Screening Interpretation: Negative 08997 - PHQ-9 Billing: Yes Source: Developed by Drs. Taco Manning, Juana Floyd, Vic Palm and colleagues, with an educational gilma from [employer]. Thrive Questionnaire Date Thrive assessed: 09/08/22 I am a: Patient What is your living situation today?: I have a steady place to live Within the past 12 months, did the food you bought not last and you didn't have the money to get more?: Never true Within the past 12 months, did you worry whether your food would run out before you got money to buy more?: Never true Do you have trouble paying for medicines?: No Do you have trouble getting transportation to medical appointments?: No Do you have trouble paying your heating and electricity bill?: No Do you have trouble taking care of your child, family member or friend?: No Do you have trouble with day-to-day activities such as bathing, preparing meals, shopping, managing finances, etc.?: No Are you currently unemployed and looking for a job?: No Are you interested in more education?: No Please select the resources that you would like help with: None Currently or been in a relationship where the following occur: no concerns reported CHALO-7 AMB Questionnaire CHALO-7 Date CHALO - 7 assessed: 09/08/22 Feeling nervous, anxious, or on edge: 0 = Not at all Not being able to stop or control worryin = Not at all Worrying too much about different things: 0 = Not at all Trouble relaxin = Not at all Being so restless that it is hard to sit still: 0 = Not at all Becoming easily annoyed or irritable: 0 = Not at all Feeling afraid as if something awful might happen: 0 = Not at all Total CHALO-7 score (0-4 normal; 5-9 mild; 10-14 moderate; 15-21 severe): 0 Source: Developed by Drs. Taco Manning, Juana Floyd, Vic Palm and colleagues, with an educational gilma from [employer]. CHALO-7 Assessment Billing CHALO-7 Assessment Tool: CHALO-7 Assessment 99703 Review of Systems Const Denies chills, Denies fatigue, Denies headache(s) and Denies weight loss Eyes Denies change in vision, Denies diplopia and Denies eye pain ENT Denies vertigo, Denies dizziness, Denies headache(s) and Denies nasal discharge Card Denies chest pain, Denies rapid heart rate and Denies dyspnea on exertion Resp Denies chest congestion, Denies cough, Denies pain with cough and Denies dyspnea on exertion GI Denies abdominal pain, Denies hematochezia and Denies change in bowel habits Musc Denies myalgias, Denies arthralgias and Denies joint swelling Skin/Breast Denies lesions and Denies unusual bruising Neuro Denies vertigo, Denies dizziness, Denies headache(s) and Denies focal weakness Endo Denies fatigue Physical exam (Primary Care) Vital Signs: Last Vital Signs Pulse 68 09/08/22 08:57 BP 110/62 09/08/22 08:57 Pulse Ox 98 09/08/22 08:57 BMI result Body Mass Index 26.8 Tobacco/Smoking Status: Tobacco use Status Tobacco use date assessed 09/08/22 09/08/22 08:57 Patient Tobacco Use Status Never used Tobacco 09/08/22 08:57 e-Cigarette/Vaping Use Never Used 09/08/22 08:57 PHQ-9: PHQ-9 Score PHQ-9: Total score 0 09/08/22 09:02 Depression Screening Interpretation: Negative Thrive Assessment: Date of Thrive Assessment Date Thrive assessed 09/08/22 09/08/22 09:02 Currently or been in a relationship where the following occur: no concerns reported Const General: cooperative, healthy appearing and no acute distress Orientation/consciousness: oriented to person, oriented to place and oriented to time HENMT Head: Yes normal to inspection, Yes normocephalic and Yes atraumatic Mouth: Normal oral and palatal mucosa present and tongue normal Throat: Yes posterior oropharynx normal and Yes uvula midline Eyes General: appearance normal, both eyes and all related structures Neck Neck: Yes normal visual inspection, Yes full ROM and Yes no lymphadenopathy Thyroid: Thyroid normal Carotids: normal carotid upstroke Chest Chest palpation & inspection: normal inspection of the chest Resp Effort & Inspection: normal respiratory effort and able to speak in complete sentences Auscultation: clear to auscultation bilaterally Cardio Jugular venous distension: no JVD Palpation: normal PMI Rate: regular rate Rhythm: regular rhythm Heart sounds: S1 normal heart sound present and S2 normal heart sound present GI Inspection: Yes normal to inspection Palpation (GI): Soft to palpation and No hepatosplenomegaly present Auscultation: normal bowel sounds General: Yes no CVA tenderness Back/Spine/Pelvis Back: no CVA tenderness Skin General skin exam: no rashes or lesions noted Neuro General: oriented to person, oriented to place and oriented to time Extrem General: Yes normal to inspection and Yes full ROM Assessment and Plan Assessment & Plan (1) Physical exam: Code(s): Z00.00 - Encounter for general adult medical examination without abnormal findings Plan: stable (2) Hyperlipidemia: Code(s): E78.5 - Hyperlipidemia, unspecified Plan: same rx Orders: Orders Comprehensive Ruby. Panel Fast Today N28.9 - Disorder of kidney and ureter, unspecified Hemoglobin A1c Today R73.9 - Hyperglycemia, unspecified Lipid Panel Today E78.5 - Hyperlipidemia, unspecified Thyroid Stimulating Hormone Today E03.9 - Hypothyroidism, unspecified Complete Blood Count Auto Diff Today D64.9 - Anemia, unspecified Coding Level of Care Code New Pt Prev Care 40-64y(30264) Diagnoses Physical exam Z00.00 Hyperlipidemia E78.5 Additional Codes CHALO-7 Assessment Billing - CHALO-7 Assessment Tool: CHALO-7 Assessment [id number] ([id number])
[2022-09-08 08:57] VITALS: BP 110/62; PULSE 68; O2SAT 98; BMI 26.8
== END 2022-09-08 09:31 | disposition home or self-care (01) ==
PROVIDERS: Visit Provider Internal Medicine
DX: Z00.00 Encounter for general adult medical examination without abnormal findings (principal); E78.5 Hyperlipidemia, unspecified
CPT/HCPCS: 99386

== ENCOUNTER 2022-09-10 06:47 | Outpatient (REF) | payer BC, SELFPAY ==
[2022-09-10 07:17] LABS: MANUAL DIFF FLAG NO
[2022-09-10 07:34] LABS: Basophils Absolute Auto 0.1 X10*3/uL (0.0-0.2); Basophils Percent Auto 1.3 % (0-2); Eosinophils Absolute Auto 0.2 X10*3/uL (0.0-0.4); Eosinophils Percent Auto 3.3 % (0-4); Hematocrit 40.2 % (37.0-47.0); Hemoglobin 13.6 g/dl (12.0-16.0); Lymphocytes Absolute Auto 1.8 X10*3/uL (1.2-4.9); Lymphocytes Percent Auto 39.5 % (20-40); Mean Corpuscular HGB Conc 33.8 g/dl (31.0-35.0); Mean Corpuscular Volume 88.5 fL (80.0-98.0); Mean Platelet Volume 9.3 fL (9.4-12.3); Monocytes Absolute Auto 0.4 X10*3/uL (0.1-1.2); Monocytes Percent Auto 8.1 % (2-11); Neutrophils Absolute Auto 2.2 x10*3/uL (2.0-8.3); Neutrophils Percent Auto 47.8 % (45-73); Platelet Count 270 X10*3/uL (160-400); Red Blood Count 4.54 X10*6/uL (4.20-5.50); Red Cell Distribution Width 12.6 % (11.0-16.0); White Blood Count 4.6 X10*3/uL (4.8-10.8)
[2022-09-10 07:43] LABS: Estimated Average Glucose 108 mg/dL; Hemoglobin A1c % 5.4 %
[2022-09-10 08:39] LABS: Alanine Aminotransferase 18 U/L (0-31); Albumin Level 4.1 g/dL (3.5-5.0); Alkaline Phosphatase 97 U/L (39-117); Anion Gap 15 (12-20); Aspartate Amino Transferase 21 U/L (5-31); Bilirubin Total 0.3 mg/dL (0.0-1.0); Blood Urea Nitrogen 15 mg/dL (9-16); Calcium 9.1 mg/dL (8.4-10.2); Carbon Dioxide 24 mmol/L (22-29); Chloride 102 mmol/L (96-108); Cholesterol 189 mg/dL; Estimated Glomerular Filt Rate > 60; Glucose Fasting 89 mg/dL (60-99); HDL Cholesterol 63 mg/dL; LDL Cholesterol Calculated 113 mg/dl; Potassium 3.8 mmol/L (3.3-5.1); Sodium 137 mmol/L (135-145); Total Protein 6.8 g/dL (6.5-8.0); Triglycerides 69 mg/dL
== END 2022-09-10 06:48 | disposition home or self-care (01) ==
LOC: HO.LAB 06:47
PROVIDERS: PCP Internal Medicine; Visit Provider Internal Medicine
DX: E78.5 Hyperlipidemia, unspecified (principal); E03.9 Hypothyroidism, unspecified; N28.9 Disorder of kidney and ureter, unspecified; R73.9 Hyperglycemia, unspecified; D64.9 Anemia, unspecified
CPT/HCPCS: 36415; 80053; 80061; 83036; 84443; 85025

== ENCOUNTER 2023-09-12 09:51 | Outpatient (AMB) | payer BC, SELFPAY ==
[2023-09-12 09:53] VITALS: BP 110/70; PULSE 67; O2SAT 98; BMI 26.9
--- NOTE | 2023-09-12 09:53 | MHC.PC.OV ---
Vital Signs 09/12/23 09:53 Height 5 ft 2 in Weight 147 lb BMI 26.9 BP 110/70 Blood Pressure Location Lt brachial Position Sitting Pulse 67 Pulse Source Pulse Oximeter Pulse Oximetry (%) 98 Oxygen Delivery Method Room Air Intake Visit Reasons: pe Bradder Required: No Quality Control Assistant: Not Required per policy Accompanied by: Self / Same As Patient Allergies doxycycline [DOXYCYCLINE] Allergy (Unknown, Verified 09/12/23 09:54) RASH Medication List - Last Reconciled 09/12/23 by Donald Knox MD acetaminophen 650 mg (2 x 325 mg) PO Q6H PRN 30 days aspirin 325 mg PO BID 42 days atorvastatin 20 mg PO DAILY trazodone 50 mg PO BEDTIME Tobacco use date assessed: 09/12/23 Fall risk assessment: No Falls in past year Last assessed Fall Risk: 09/12/23 Dental Screening Dental Screen Date: 09/12/23 Did you have a dental visit in the last 12 months?: Yes Did you have a dental problem in the last 6 months where you did not have access to dental care?: No Was dental information given to patient?: Patient has dentist HPI pe HPI Details hyperlipidemia on rx; doing well PFSH Medical History History of skin cancer Hx of migraines Hyperlipidemia Surgical History History of bunionectomy of left great toe History of carpal tunnel surgery of right wrist History of hysterectomy History of meniscectomy of right knee History of total right knee replacement Hx of colonoscopy Family History Mother No problems noted. Father No problems noted. 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 1. Little interest or pleasure in doing things: not at all 2. Feeling down, depressed, or hopeless: not at all 3. Trouble falling or staying asleep, or sleeping too much: not at all 4. Feeling tired or having little energy: not at all 5. Poor appetite or overeating: not at all 6. Feeling bad about yourself - or that you are a failure or have let yourself or your family down: not at all 7. Trouble concentrating on things, such as reading the newspaper or watching television: not at all 8. Moving or speaking so slowly that other people could have noticed. Or the opposite - being so fidgety or restless that you have been moving around a lot more than usual: not at all 9. Thoughts that you would be better off or of hurting yourself in some way: not at all Total score: 0 Depression Screening Interpretation: Negative Depression Screening Done: Yes 11331 - PHQ-9 Billing: Yes Source: Developed by Drs. Taco Manning, Juana Floyd, Vic Palm and colleagues, with an educational gilma from [employer]. Thrive Questionnaire Date Thrive assessed: 09/12/23 I am a: Patient What is your living situation today?: I have a steady place to live Within the past 12 months, did the food you bought not last and you didn't have the money to get more?: Never true Within the past 12 months, did you worry whether your food would run out before you got money to buy more?: Never true Do you have trouble paying for medicines?: No Do you have trouble getting transportation to medical appointments?: No Do you have trouble paying your heating and electricity bill?: No Do you have trouble taking care of your child, family member or friend?: No Do you have trouble with day-to-day activities such as bathing, preparing meals, shopping, managing finances, etc.?: No Are you currently unemployed and looking for a job?: No Are you interested in more education?: No Please select the resources that you would like help with: None THRIVE Score: 0 CHALO-7 AMB Questionnaire CHALO-7 Date CHALO - 7 assessed: 09/12/23 Feeling nervous, anxious, or on edge: 0 = Not at all Not being able to stop or control worryin = Not at all Worrying too much about different things: 0 = Not at all Trouble relaxin = Not at all Being so restless that it is hard to sit still: 0 = Not at all Becoming easily annoyed or irritable: 0 = Not at all Feeling afraid as if something awful might happen: 0 = Not at all Total CHALO-7 score (0-4 normal; 5-9 mild; 10-14 moderate; 15-21 severe): 0 Source: Developed by Drs. Taco Manning, Juana Floyd, Vic Palm and colleagues, with an educational gilma from [employer]. Review of Systems Const Denies chills, Denies fatigue, Denies headache(s) and Denies weight loss Eyes Denies change in vision, Denies diplopia and Denies eye pain ENT Denies vertigo, Denies dizziness, Denies headache(s) and Denies nasal discharge Card Denies chest pain, Denies rapid heart rate and Denies dyspnea on exertion Resp Denies chest congestion, Denies cough, Denies pain with cough and Denies dyspnea on exertion GI Denies abdominal pain, Denies hematochezia and Denies change in bowel habits Musc Denies myalgias, Denies arthralgias and Denies joint swelling Skin/Breast Denies lesions and Denies unusual bruising Neuro Denies vertigo, Denies dizziness, Denies headache(s) and Denies focal weakness Endo Denies fatigue Physical exam (Primary Care) Vital Signs: Last Vital Signs Pulse 67 09/12/23 09:53 BP 110/70 09/12/23 09:53 Pulse Ox 98 09/12/23 09:53 Oxygen Delivery Method Room Air 09/12/23 09:53 BMI result Body Mass Index 26.9 Tobacco/Smoking Status: Tobacco use Status Tobacco use date assessed 09/12/23 09/12/23 09:54 Patient Tobacco Use Status Never used Tobacco 09/12/23 09:54 e-Cigarette/Vaping Use Never Used 09/12/23 09:54 PHQ-9: PHQ-9 Score PHQ-9: Total score 0 09/12/23 12:44 Depression Screening Interpretation: Negative Thrive Assessment: Date of Thrive Assessment Date Thrive assessed 09/12/23 09/12/23 12:44 Const General: cooperative, healthy appearing and no acute distress Orientation/consciousness: oriented to person, oriented to place and oriented to time HENMT Head: Yes normal to inspection, Yes normocephalic and Yes atraumatic Mouth: Normal oral and palatal mucosa present and tongue normal Throat: Yes posterior oropharynx normal and Yes uvula midline Eyes General: appearance normal, both eyes and all related structures Neck Neck: Yes normal visual inspection, Yes full ROM and Yes no lymphadenopathy Thyroid: Thyroid normal Carotids: normal carotid upstroke Chest Chest palpation & inspection: normal inspection of the chest Resp Effort & Inspection: normal respiratory effort and able to speak in complete sentences Auscultation: clear to auscultation bilaterally Cardio Jugular venous distension: no JVD Palpation: normal PMI Rate: regular rate Rhythm: regular rhythm Heart sounds: S1 normal heart sound present and S2 normal heart sound present GI Inspection: Yes normal to inspection Palpation (GI): Soft to palpation and No hepatosplenomegaly present Auscultation: normal bowel sounds General: Yes no CVA tenderness Back/Spine/Pelvis Back: no CVA tenderness Skin General skin exam: no rashes or lesions noted Neuro General: oriented to person, oriented to place and oriented to time Extrem General: Yes normal to inspection and Yes full ROM Assessment and Plan Assessment & Plan (1) Physical exam: Code(s): Z00.00 - Encounter for general adult medical examination without abnormal findings Plan: stable (2) Hyperlipidemia: Comment: stable; same rx; do labs Code(s): E78.5 - Hyperlipidemia, unspecified Orders: Orders Thyroid Stimulating Hormone Today Z13.29 - Encounter for screening for other suspected endocrine disorder Comprehensive [place]. Panel Fast Today Z13.9 - Encounter for screening, unspecified Lipid Panel Today Z13.220 - Encounter for screening for lipoid disorders Complete Blood Count Auto Diff Today Z13.0 - Encounter for screening for diseases of the blood and blood-forming organs and certain disorders involving the immune mechanism Coding Level of Care Code Est Pt Prev Care 40-64y(37737) Diagnoses Physical exam Z00.00 Hyperlipidemia E78.5
== END 2023-09-12 10:26 | disposition home or self-care (01) ==
PROVIDERS: PCP Internal Medicine; Visit Provider Internal Medicine
DX: Z00.00 Encounter for general adult medical examination without abnormal findings (principal); E78.5 Hyperlipidemia, unspecified
CPT/HCPCS: 99396

== ENCOUNTER 2023-09-15 06:43 | Outpatient (REF) | payer MEDICARE, SELFPAY ==
[2023-09-15 06:52] LABS: MANUAL DIFF FLAG NO
[2023-09-15 07:28] LABS: Basophils Absolute Auto 0.1 X10*3/uL (0.0-0.2); Basophils Percent Auto 1.1 % (0-2); Eosinophils Absolute Auto 0.1 X10*3/uL (0.0-0.4); Eosinophils Percent Auto 2.7 % (0-4); Hemoglobin 13.2 g/dl (12.0-16.0); Imm Gran Abs Auto 0.01 X10*3/uL (0.00-0.03); Imm Gran Pct Auto 0.2 % (0.0-0.4); Lymphocytes Percent Auto 43.8 % (20-40); Mean Corpuscular HGB Conc 33.8 g/dl (31.0-35.0); Mean Corpuscular Hemoglobin 29.7 pg (27.0-33.0); Mean Corpuscular Volume 87.8 fL (80.0-98.0); Mean Platelet Volume 9.4 fL (9.4-12.3); Monocytes Absolute Auto 0.4 X10*3/uL (0.1-1.2); Monocytes Percent Auto 8.2 % (2-11); Platelet Count 251 X10*3/uL (160-400); Red Blood Count 4.44 X10*6/uL (4.20-5.50); Red Cell Distribution Width 12.9 % (11.0-16.0); White Blood Count 4.5 X10*3/uL (4.8-10.8)
[2023-09-15 07:42] LABS: Alanine Aminotransferase 17 U/L (0-31); Albumin Level 4.2 g/dL (3.5-5.0); Alkaline Phosphatase 88 U/L (39-117); Anion Gap 9 (12-20); Aspartate Amino Transferase 19 U/L (5-31); Bilirubin Total 0.5 mg/dL (0.0-1.0); Blood Urea Nitrogen 14 mg/dL (9-16); Calcium 9.5 mg/dL (8.4-10.2); Carbon Dioxide 29 mmol/L (22-29); Chloride 105 mmol/L (96-108); Cholesterol 171 mg/dL (<200); Estimated Glomerular Filt Rate > 60; Glucose Fasting 86 mg/dL (60-99); HDL Cholesterol 65 mg/dL (>40); LDL Cholesterol Calculated 92 mg/dL (<100); Potassium 3.9 mmol/L (3.3-5.1); Sodium 139 mmol/L (135-145); Total Protein 6.6 g/dL (6.5-8.0); Triglycerides 73 mg/dL (<150)
[2023-09-15 07:58] LABS: Thyroid Stimulating Hormone 1.09 uIU/mL (0.32-4.0)
== END 2023-09-15 06:44 | disposition home or self-care (01) ==
LOC: HO.LAB 06:43
PROVIDERS: PCP Internal Medicine; Visit Provider Internal Medicine
DX: Z13.0 Encounter for screening for diseases of the blood and blood-forming organs and certain disorders involving the immune mechanism (principal); Z13.220 Encounter for screening for lipoid disorders; Z13.29 Encounter for screening for other suspected endocrine disorder; Z13.9 Encounter for screening, unspecified
CPT/HCPCS: 36415; 80053; 80061; 84443; 85025

== ENCOUNTER 2024-01-02 09:24 | Outpatient (REF) | payer MEDICARE, SELFPAY | END 2024-01-02 09:25 | disposition home or self-care (01) | LOC: HO.XRAY 09:24 | PROVIDERS: PCP Internal Medicine; Visit Provider Internal Medicine | DX: M54.50 Low back pain, unspecified (principal) | CPT/HCPCS: 72100; 96127; 99212 ==

== ENCOUNTER 2024-01-02 09:24 | Outpatient (AMB) | payer MEDICARE, SELFPAY ==
[2024-01-02 09:26] VITALS: BP 118/74; PULSE 82; O2SAT 98
--- NOTE | 2024-01-02 09:26 | MHC.PC.OV ---
Vital Signs 01/02/24 09:26 Height 5 ft 2 in BMI Reason not done Patient refused/unable BP 118/74 Blood Pressure Location Lt brachial Position Sitting Pulse 82 Pulse Source Pulse Oximeter Pulse Oximetry (%) 98 Oxygen Delivery Method Room Air Intake Visit Reasons: Back pain Allergies doxycycline [DOXYCYCLINE] Allergy (Unknown, Verified 01/02/24 09:26) RASH Tobacco use date assessed: 01/02/24 Fall risk assessment: No Falls in past year Last assessed Fall Risk: 01/02/24 Dental Screening Dental Screen Date: 09/12/23 HPI Back pain HPI Details left lower back pain for a month PFS Medical History History of skin cancer Hx of migraines Hyperlipidemia Surgical History History of bunionectomy of left great toe History of carpal tunnel surgery of right wrist History of hysterectomy History of meniscectomy of right knee History of total right knee replacement Hx of colonoscopy Family History Mother No problems noted. Father No problems noted. 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 1. Little interest or pleasure in doing things: not at all 2. Feeling down, depressed, or hopeless: not at all 3. Trouble falling or staying asleep, or sleeping too much: not at all 4. Feeling tired or having little energy: not at all 5. Poor appetite or overeating: not at all 6. Feeling bad about yourself - or that you are a failure or have let yourself or your family down: not at all 7. Trouble concentrating on things, such as reading the newspaper or watching television: not at all 8. Moving or speaking so slowly that other people could have noticed. Or the opposite - being so fidgety or restless that you have been moving around a lot more than usual: not at all 9. Thoughts that you would be better off or of hurting yourself in some way: not at all Total score: 0 Depression Screening Interpretation: Negative Depression Screening Done: Yes 56142 - PHQ-9 Billing: Yes Source: Developed by Drs. Taco Manning, Vic Alvarez and colleagues, with an educational gilma from [employer]. Thrive Questionnaire Date Thrive assessed: 01/02/24 I am a: Patient What is your living situation today?: I have a steady place to live Within the past 12 months, did the food you bought not last and you didn't have the money to get more?: Never true Within the past 12 months, did you worry whether your food would run out before you got money to buy more?: Never true Do you have trouble paying for medicines?: No Do you have trouble getting transportation to medical appointments?: No Do you have trouble paying your heating and electricity bill?: No Do you have trouble taking care of your child, family member or friend?: No Do you have trouble with day-to-day activities such as bathing, preparing meals, shopping, managing finances, etc.?: No Are you currently unemployed and looking for a job?: No Are you interested in more education?: No Currently or been in a relationship where the following occur: No concerns reported THRIVE Score: 0 AUDIT C Alcohol Use Questionnaire (AUDIT-C) 1. How often do you have a drink containing alcohol?: Never 2. How many drinks containing alcohol do you have on a typical day when you are drinking?: 1 or 2 3. How often do you have six or more drinks on one occasion?: Never Total Score: 0 Score Reviewed/Action Taken: Yes CHALO-7 AMB Questionnaire CHALO-7 Date CHALO - 7 assessed: 09/12/23 Source: Developed by Drs. Taco Manning, Juana Floyd, Vic Palm and colleagues, with an educational gilma from [employer]. Review of Systems Const Denies chills, Denies headache(s) and Denies weight loss ENT Denies headache(s) Card Denies chest pain, Denies syncope, Denies irregular heart rhythm and Denies dyspnea Resp Denies chest congestion, Denies cough and Denies dyspnea GI Denies abdominal pain, Denies change in stool character, Denies nausea and Denies vomiting Musc Denies deformity and Denies joint swelling Neuro Denies syncope and Denies headache(s) Physical exam (Primary Care) Vital Signs: Last Vital Signs Pulse 82 01/02/24 09:26 BP 118/74 01/02/24 09:26 Pulse Ox 98 01/02/24 09:26 Oxygen Delivery Method Room Air 01/02/24 09:26 Tobacco/Smoking Status: Tobacco use Status Tobacco use date assessed 01/02/24 01/02/24 09:28 Patient Tobacco Use Status Never used Tobacco 01/02/24 09:28 Tobacco use type Cigarette 01/02/24 09:28 e-Cigarette/Vaping Use Never Used 01/02/24 09:28 PHQ-9: PHQ-9 Score PHQ-9: Total score 0 01/02/24 09:28 Depression Screening Interpretation: Negative Thrive Assessment: Date of Thrive Assessment Date Thrive assessed 01/02/24 01/02/24 09:33 Currently or been in a relationship where the following occur: No concerns reported Const General: cooperative, comfortable, no acute distress and alert Neck Neck: Yes no lymphadenopathy Thyroid: Thyroid normal Resp Effort & Inspection: normal respiratory effort Auscultation: clear to auscultation bilaterally Percussion: percussion normal Cardio Jugular venous distension: no JVD Palpation: normal PMI Rate: regular rate Rhythm: regular rhythm Heart sounds: S1 normal heart sound present and S2 normal heart sound present GI Inspection: Yes normal to inspection Palpation (GI): No hepatosplenomegaly present Skin General skin exam: no rashes or lesions noted Extrem General: Yes no clubbing, cyanosis or edema Coding Level of Care Code Est Pt Level 3 (18689) Diagnoses Low back pain M54.50 Additional Codes PHQ-9 - 38287 - PHQ-9 Billing: Yes ([id number]) Assessment & Plan Assessment & Plan (1) Low back pain: Code(s): M54.50 - Low back pain, unspecified Category: Medical Plan: xr and rx Orders: Orders XR lumbar spine 2-3V Today M54.9 - Dorsalgia, unspecified Medications: New cyclobenzaprine 5 mg PO TID PRN 30 tabs 0RF muscle spasm tramadol 50 mg PO Q8H 7 days PRN 20 tabs 0RF pain
== END 2024-01-02 09:45 | disposition home or self-care (01) ==
PROVIDERS: PCP Internal Medicine; Visit Provider Internal Medicine
DX: M54.50 Low back pain, unspecified (principal)

== ENCOUNTER 2024-09-12 08:55 | Outpatient (AMB) | payer MEDICARE, SELFPAY ==
--- NOTE | 2024-09-12 09:05 | A.OFFPC_ITS ---
Vital Signs 09/12/24 09:07 Height 5 ft 2 in Weight 150 lb 4 oz BMI 27.5 BP 120/80 Blood Pressure Location Lt brachial Position Sitting Pulse 67 Pulse Source Pulse Oximeter Temp 96.9 F Temp Source Temporal Artery Scan Pulse Oximetry (%) 98 Oxygen Delivery Method Room Air Intake Visit Reasons: KAILYN Dr. 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: Not Required per policy Accompanied by: Self / Same As Patient Allergies doxycycline (DOXYCYCLINE) Allergy (Unknown, Verified 09/12/24 09:27) RASH Medication List - Last Reconciled 09/12/24 by Baljinder Murcia PA-C acetaminophen 650 mg (2 x 325 mg) PO Q6H PRN 30 days aspirin 325 mg PO BID 42 days atorvastatin 20 mg PO DAILY cyclobenzaprine 5 mg PO TID PRN tramadol 50 mg PO Q8H PRN 7 days trazodone 50 mg PO BEDTIME Tobacco use date assessed: 09/12/24 Fall risk assessment: No Falls in past year Last assessed Fall Risk: 09/12/24 Dental Screening Dental Screen Date: 09/12/24 Did you have a dental visit in the last 12 months?: Yes Did you have a dental problem in the last 6 months where you did not have access to dental care?: No Was dental information given to patient?: Patient has dentist HPI KAILYN Dr. rodriguez HPI Details Patient is a 63-year-old female here today for a transfer of care visit. Previous PCP was Dr. Rodriguez. Patient has a past medical history significant for hyperlipidemia, right knee arthroplasty. . Concern--> There is a significant family history of cardiovascular disease, which raises her concern about her own cardiac health, especially with an upcoming hiking trip. She had an elevated heart rate episode during a urinary tract infection, managed at urgent care. The patient reports persistent peripheral edema in the ankles, unresponsive to compression stockings. No recent ultrasounds of the legs have been performed. Weight issue: She struggles with weight management despite regular exercise and dietary efforts, with a stable weight of 150 pounds. Previous thyroid function tests were normal. Hyperlipidemia: Most recent fasting labs shows excellent control of her total cholesterol and LDL. [facility] Medical History History of skin cancer Hx of migraines Hyperlipidemia Surgical History Hx of colonoscopy History of total right knee replacement History of carpal tunnel surgery of right wrist History of meniscectomy of right knee History of bunionectomy of left great toe History of hysterectomy Family History Mother No problems noted. Father No problems noted. 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 1. Little interest or pleasure in doing things: not at all 2. Feeling down, depressed, or hopeless: not at all 3. Trouble falling or staying asleep, or sleeping too much: not at all 4. Feeling tired or having little energy: not at all 5. Poor appetite or overeating: not at all 6. Feeling bad about yourself - or that you are a failure or have let yourself or your family down: not at all 7. Trouble concentrating on things, such as reading the newspaper or watching television: not at all 8. Moving or speaking so slowly that other people could have noticed. Or the opposite - being so fidgety or restless that you have been moving around a lot more than usual: not at all 9. Thoughts that you would be better off or of hurting yourself in some way: not at all Total score: 0 Depression Screening Interpretation: Negative Depression Screening Done: Yes 93176 - PHQ-9 Billing: Yes Source: Developed by Drs. Taco Manning, Vic Alvarez and colleagues, with an educational gilma from [employer]. Thrive Questionnaire Date Thrive assessed: 09/05/24 I am a: Patient What is your living situation today?: I have a steady place to live Within the past 12 months, did the food you bought not last and you didn't have the money to get more?: Never true Within the past 12 months, did you worry whether your food would run out before you got money to buy more?: Never true Do you have trouble paying for medicines?: No Do you have trouble getting transportation to medical appointments?: No Do you have trouble paying your heating and electricity bill?: No Do you have trouble taking care of your child, family member or friend?: No Do you have trouble with day-to-day activities such as bathing, preparing meals, shopping, managing finances, etc.?: No Are you currently unemployed and looking for a job?: No Are you interested in more education?: No Please select the resources that you would like help with: None Currently or been in a relationship where the following occur: No concerns reported THRIVE Score: 0 AUDIT C Alcohol Use Questionnaire (AUDIT-C) 1. How often do you have a drink containing alcohol?: Monthly or less 2. How many drinks containing alcohol do you have on a typical day when you are drinking?: 1 or 2 3. How often do you have six or more drinks on one occasion?: Never Total Score: 1 CHALO-7 AMB Questionnaire CHALO-7 Date CHALO - 7 assessed: 09/12/24 Feeling nervous, anxious, or on edge: 0 = Not at all Not being able to stop or control worryin = Not at all Worrying too much about different things: 0 = Not at all Trouble relaxin = Not at all Being so restless that it is hard to sit still: 0 = Not at all Becoming easily annoyed or irritable: 0 = Not at all Feeling afraid as if something awful might happen: 0 = Not at all Total CHALO-7 score (0-4 normal; 5-9 mild; 10-14 moderate; 15-21 severe): 0 Source: Developed by Juana Ricardo Kurt Kroenke and colleagues, with an educational gilma from [employer]. CHALO-7 Assessment Billing CHALO-7 Assessment Tool: CHALO-7 Assessment 53083 Review of Systems Const Denies headache(s) Eyes Denies loss of vision ENT Denies vertigo, Denies dizziness, Denies headache(s) and Denies sore throat Card Denies chest pain, Denies leg edema and Denies lightheadedness Resp Denies cough, Denies hemoptysis and Denies wheezing GI Denies abdominal pain, Denies melena, Denies constipation, Denies diarrhea and Denies vomiting Denies urinary frequency, Denies dysuria and Denies urinary urgency Musc Denies arthralgias, Denies joint swelling, Denies numbness and Denies tingling Neuro Denies Abnormal speech present, Denies behavioral changes, Denies vertigo, Denies dizziness, Denies headache(s), Denies loss of vision, Denies memory loss, Denies numbness and Denies tingling Psych Denies anxiety, Denies behavioral changes, Denies depression, Denies memory loss and Denies panic attacks Kaushik/Lymph Denies easy bleeding and Denies easy bruising Aller/Immun Denies wheezing Physical exam (Primary Care) Vital Signs: Last Vital Signs Temp 96.9 F 09/12/24 09:07 Pulse 67 09/12/24 09:07 BP 120/80 09/12/24 09:07 Pulse Ox 98 09/12/24 09:07 Oxygen Delivery Method Room Air 09/12/24 09:07 BMI result Body Mass Index 27.5 Tobacco/Smoking Status: Tobacco use Status Tobacco use date assessed 09/12/24 09/12/24 09:14 Patient Tobacco Use Status Never used Tobacco 09/12/24 09:32 Tobacco use type Cigarette 09/12/24 09:32 e-Cigarette/Vaping Use Never Used 09/12/24 09:32 PHQ-9: PHQ-9 Score PHQ-9: Total score 0 09/12/24 09:33 Depression Screening Interpretation: Negative Thrive Assessment: Date of Thrive Assessment Date Thrive assessed 09/05/24 09/12/24 09:14 Currently or been in a relationship where the following occur: No concerns reported Const General: healthy appearing, no acute distress, alert and awake Nutritional Appearance: well nourished Orientation/consciousness: oriented to person, oriented to place and oriented to time HENMT Ears: TM's normal bilaterally General nose exam: Normal nasal mucous membranes and turbinates present Eyes Conjunctivae: conjunctivae normal Sclerae: sclerae normal Pupils: Equal, round and reactive pupils present Neck Neck: Yes no lymphadenopathy and Yes no JVD Thyroid: Thyroid normal Carotids: no bruits Resp Effort & Inspection: normal respiratory effort and not tachypneic Auscultation: no crackles, no rales, no rhonchi and no wheezes Cardio Rate: regular rate Rhythm: regular rhythm Heart sounds: no murmurs and normal S1 and S2 GI Palpation (GI): Soft to palpation, nontender, no hepatomegaly and no splenomegaly Auscultation: normal bowel sounds Skin General skin exam: no rashes or lesions noted and dry skin Neuro General: oriented to person, oriented to place and oriented to time Cranial nerves: Yes Equal, round and reactive pupils present Speech: No Abnormal speech present Gait exam (Neuro): Normal gait present Motor exam (neuro): no tremor noted Extrem Right upper extremity: full ROM Left upper extremity: full ROM Right lower extremity: full ROM; no edema Left lower extremity: full ROM; no edema Psych Mental Status: mental status grossly normal Speech and movement: Normal speech and movement present Affect: normal affect Attitude: cooperative Thought process: Normal thought process present Coding Level of Care Code Est Pt Level 4 (92199) Diagnoses Mixed hyperlipidemia E78.2 Hyperlipidemia type: mixed hyperlipidemia Bilateral lower extremity edema R60.0 Family history of coronary artery disease Z82.49 Additional Codes PHQ-9 - 13861 - PHQ-9 Billing: Yes ([id number]) CHALO-7 Assessment Billing - CHALO-7 Assessment Tool: CHALO-7 Assessment 18826 ([id number]) Assessment & Plan Assessment & Plan (1) Hyperlipidemia: Comment: stable; same rx; do labs Code(s): E78.5 - Hyperlipidemia, unspecified Category: Medical Qualifiers: Hyperlipidemia type: mixed hyperlipidemia Qualified Code(s): E78.2 - Mixed hyperlipidemia Plan: The patient's hyperlipidemia is well-managed with medication, and recent lab results show controlled cholesterol levels. Goal LDL is to remain below 100 (2) Bilateral lower extremity edema: Code(s): R60.0 - Localized edema Category: Medical Plan: The patient reports persistent peripheral edema, and an ultrasound of the legs is planned to assess vascular issues. (3) Family history of coronary artery disease: Code(s): Z82.49 - Family history of ischemic heart disease and other diseases of the circulatory system Category: Medical Plan: Given the family history of cardiovascular disease, the patient is advised to maintain regular monitoring and consider further cardiac evaluation if symptoms arise. Orders: Orders TSH reflex Free T4 Today E78.2 - Mixed hyperlipidemia Complete Blood Count no Diff Today E78.2 - Mixed hyperlipidemia US venous duplex LE BI Today R60.0 - Localized edema Lipid Panel Today E78.2 - Mixed hyperlipidemia Comprehensive [place]. Panel Fast Today E78.2 - Mixed hyperlipidemia Medications: Discontinued acetaminophen Discontinued Reason: Doctor's Order 650 mg (2 x 325 mg) PO Q6H 30 days PRN 240 tabs 0RF Pain, Mild (Pain Scale 1-3) cyclobenzaprine Discontinued Reason: Doctor's Order 5 mg PO TID PRN 30 tabs 0RF muscle spasm tramadol Discontinued Reason: Doctor's Order 50 mg PO Q8H 7 days PRN 20 tabs 0RF pain
[2024-09-12 09:07] VITALS: BP 120/80; PULSE 67; TEMP 36.1; O2SAT 98; BMI 27.5
--- OUTSIDE RECORDS SUMMARY | 2024-09-12 09:20 | XMS_ITS | Patient Health Record ---
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 Name Role Phone Lisette VANG, Donald Primary Care Provider Taco Laguerre [phone] Allergies Allergen (clinical drug ingredient) Drug/Non Drug Allergy documented on EMR Reaction Allergy Type Onset Date Status doxycycline Doxycycline Unknown Drug Allergy Act yu Reason For Referral No Information Medications Medication SIG (Take, Route, Frequency, Duration) Notes Start Date End Date Status Multivitamin Active Atorvastatin Calcium 10 MG TAKE 1 TABLET BY MOUTH EVERY DAY Oral for 90 Active Fioricet Active Calcium Active Immunizations Vaccine Route Administration Date Status Comme nts Influenza Unknown 11/14/2018 Administered Social History Tobacco Use: Social History Observation Description Date Details (start date - stop date) Never Smoker NA - NA Tobacco Use/Smoking Question Answer Notes Patient is a nonsmoker Alcohol Screen Question Answer Notes Did you have a drink contain ing alcohol in the past year? Yes How often did you have a dri nk containing alcohol in the past year? Never (0 point) How many drinks did you have on a typical day when you were drinking in the past year? 1 or 2 drinks (0 point) Points 0 Interpretation Negative Section Notes: Nonsmoker, very occasional a lcohol Problems Problem Type SNOMED Code ICD Code Onset Dates Problem Status W/U Status Risk Notes Problem [id number] Encounter for screening for malignant neoplasm of colon (Z12.11) Active confirmed Problem [id number] Preprocedural examination (Z01.818) Active confirmed Plan Of Treatment Future Test Test Name Order Date COLONOSCOPY 02/15/2019 Insurance Providers Payer Name Payer Address Payer Phone Subscriber Number Group Number Insured Name Patient Relationship to Insured Coverage Start Date Coverage End Date [facility] [employer] CLAIMS [address] [place] [address] [phone] [id number] [id number] MONDRAGON Self - patient is the insured Medical (General) History Medical History History ICD Code Denies IN,DM,CVA,Lung disease,renal dise ase Negative screening colonoscopy in 02/[address] Graf Migraines Hyperlipidemia Surgical History Surgery Date(Month/Year) Right knee replacement-Dr. Walker 2003 RAJESH 2014 Right carpal tunnel 2000
--- OUTSIDE RECORDS SUMMARY | 2024-09-12 09:20 | XMS_ITS | Clinical Summary ---
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 at bedtime. 1 Active atorvastatin (LIPITOR) 20 MG tablet Take 20 mg by mouth daily. 1 Active phenazopyridine (PYRIDIUM) 100 MG tablet Take 2 tablets (200 mg total) by mouth 3 (three) times a day as needed for pain (specific location in comments) (URINARY DISCOMFORT). 12 tablet 5 Active Additional Information Patient not taking.Reported on 05/10/2024 Active Problems Problem Noted Date Diagnosed Date Atrophic vaginitis 12/14/2020 Immunizations Immunization Administration Dates Next Due Hepatitis B CpG 11/06/2022 Influenza Quadrivalent MDCK Preservative Free IM 11/06/2022,11/08/2018 Influenza Quadrivalent Prese rvative Free IM 10/24/2021,09/30/2019,10/24/2017,2016 Influenza Trivalent w/ Prese rvative IM 11/02/2020,10/25/2015 RSV Vaccine (monovalent, adjuvanted) 03/22/2023 Tdap 08/12/2017 Family History Medical History Relation Comments Cancer Father 2 Diabetes mellitus Father 2 Cancer Maternal Aunt 2 Cancer Mother 2 Relation Status Comments Father 1 Father 2 Maternal Aunt 1 Maternal Aunt 2 Mother 1 Alive Mother 2 Social History Tobacco Use Types Packs/Day Years Used Date Smoking Tobacco: Never Smokeless Tobacco: Never Tobacco Cessation:Counseling Given: Not Answered Alcohol Use Standard Drinks/Week Comments Yes 0 (1 standard drink = 0.6 oz pur e alcohol) Occasional, special events Education Answer Date Recorded Are you interested in more education? Not on diana e 06/11/2022 Are you concerned about learning? Not on file 06/11/2022 No 06/11/2022 No 06/11/2022 Digital Access Answer Date Recorded No 07/10/2022 No 07/10/2022 Reliable internet access at home? Not on file 07/10/2022 Device with a working camera? Not on file Comments Unknown Sex and Gender Information Value Date Recorded Sex Assigned at Not on file Legal Sex Female 9:50 PM EDT Gender Identity Not on file Sexual Orientation Not on file Last Filed Vital Signs Vital Sign Reading Time Taken Comments Blood Pressure 110/68 05/10/2024 12:29 PM EDT Pulse 105 05/10/2024 12:29 PM EDT Temperature 37.1 C (98.7 F) 05/10/2024 12:29 PM EDT Respiratory Rate 17 05/10/2024 12:29 PM EDT Oxygen Saturation 96% 05/10/2024 12:29 PM EDT Inhaled Oxygen Concentration - - Weight 64.9 kg (143 lb) 01/27/2022 4:44 PM EST Height 157.5 cm (5' 2 ) 01/27/2022 4:44 PM EST Body Mass Index 26.16 01/27/2022 4:44 PM EST Plan of Treatment Health Maintenance Due Date Last Done Comments LIPID PANEL 1958 DEPRESSION SCREENING 1970 HEPATITIS C SCREENING 1976 HIV ONE-TIME SCREENING (18-65 YEARS) 1976 SCREENING FOR DIABETES 1993 COLOGUARD 10/13/2003 COLONOSCOPY 10/13/2003 COLORECTAL CANCER SCREENING 10/13/2003 FIT TEST 10/13/2003 FOBT 10/13/2003 SIGMOIDOSCOPY 10/13/2003 VIRTUAL COLONOSCOPY 10/13/2003 PNEUMOCOCCAL VACCINES (50+ years) (1 of 1 - PCV) 2008 ZOSTER VACCINES (1 of 2) 2008 OSTEOPOROSIS SCREENING INITIAL (ONE-TIME) 10/13/2023 COVID-19 VACCINE ( season) 2024 2023, 11/06/2022, 12/06/2021, Additional history exists MAMMOGRAM 01/12/2026 01/13/2024, 12/16, 04/23/2016 Adult Td,Tdap Booster 08/13/2027 08/12/2017 RSV VACCINE Completed 03/22/2023 SMOKING STATUS SCREENING (Once After 26 Yrs) Completed 03/31/2024 HEPATITIS A VACCINES Aged Out No long er eligible based on patient's age to complete this topic HIB VACCINES Aged Out No longer eligi ble based on patient's age to complete this topic MENINGOCOCCAL VACCINES (ACWY) Aged Out No longer eligible based on patient's age to complete this topic MENINGOCOCCAL VACCINES (B) Aged Out N o longer eligible based on patient's age to complete this topic Medical Devices Not on file Insurance [employer] MEDEX SUPPLEMENT MEDICARE PART A & B [employer] MEDEX SUPPLEMENT MEDICARE PART A & B [employer] MEDEX SUPPLEMENT MEDICARE PART A [place] [address] [employer] CROSS MEDEX SUPPLEMENT MEDICARE PART A & [place] [address] [employer] CROSS MEDEX SUPPLEMENT MEDICARE PART A & B [employer]EX SUPPLEMENT MEDICARE PART A & B Care Teams Air Conditioning Unit Assembler Relationship Specialty Start Date End Date Baljinder Murcia PA [address] [place] [phone] PCP - General Physician 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 It is not the complete legal health record.[facility]
--- OUTSIDE RECORDS SUMMARY | 2024-09-12 09:20 | XMS_ITS | Clinical Summary ---
Author Organization [facility] Address [address] [place] [address] Phone Care Team Providers Care Ceramic Artist Name Role Phone Donald Knox MD Primary Care Provider [phone] Surgical History Surgery Date Site/Laterality Comments BREAST CYST ASPIRATION STEREOTACTIC CORE BIOPSY HYSTERECTOMY Family History Medical History Relation Name Comments Breast cancer Maternal Grandmother Relation Name Status Comments Maternal Grandmother Social History Tobacco Use Types Packs/Day Years Used Date Smoking Tobacco: Never Assessed Comments No Sex and Gender Information Value Date Recorded Sex Assigned at Not on file Legal Sex Female 3:48 PM EST Gender Identity Not on file Sexual Orientation Not on file Obstetrics History Para Term AB IAB SAB Ectopic Multiple Livin g Live Births 3 Last Filed Vital Signs Vital Sign Reading Time Taken Comments Blood Pressure - - Pulse - - Temperature - - Respiratory Rate - - Oxygen Saturation - - Inhaled Oxygen Concentration - - Weight 67.6 kg (149 lb) 01/13/2024 10:09 AM EST Height 157.5 cm (5' 2 ) 01/13/2024 10:09 AM EST Body Mass Index 27.25 01/13/2024 10:09 AM EST Plan of Treatment Health Maintenance Due Date Last Done Comments Cervical Cancer Screening: Pap Smear 10/13/1979 Pneumococcal Vaccine: 50+ Years (1 of 1 - PCV) 2008 Zoster Vaccines (1 of 2) 2008 Colorectal Cancer Screening: Colonoscopy 01/13/2022 Hepatitis C Screening 01/13/2022 Medicare Annual Wellness Visit 01/13/2022 Social Influencers of Health Screening 01/13/2022 Hepatitis B Vaccines (2 of 2 - CpG 2-dose series) 12/04/2022 11/06/2022 Falls Risk Assessment 10/13/2023 Depression Screening 02/15/2024 COVID-19 Vaccine ( season) 2024 2023, 11/06/2022, 12/06/2021, Additional history exists Influenza Vaccine (#1) 2024 , 11/06/2022, 10/24/2021, Additional history exists Breast Cancer Screening 01/12/2026 01/13/20 24, 01/10/2023, 11/26/2021, Additional history exists DTaP,Tdap,and Td Vaccines (2 - Td or Tdap) 08/13/2027 08/12/2017 Osteoporosis Screening (Bone Density Screening) 01/11/2033 01/11/2023 RSV Immunization Adult Patients Completed 03/22/2023 HIB Vaccines Aged Out No longer eligi ble based on patient's age to complete this topic HPV Vaccines Aged Out No longer eligi ble based on patient's age to complete this topic Hepatitis A Vaccines Aged Out No long er eligible based on patient's age to complete this topic IPV Vaccines Aged Out No longer eligi ble based on patient's age to complete this topic MMR Vaccines Aged Out No longer eligi ble based on patient's age to complete this topic Meningococcal ACWY Vaccine Aged Out N o longer eligible based on patient's age to complete this topic Meningococcal B Vaccine Aged Out No l onger eligible based on patient's age to complete this topic RSV Immunization Patients Under 20 months Aged Out No longer eligible based on patient's age to complete this topic Varicella Vaccines Aged Out No longer eligible based on patient's age to complete this topic Procedures Procedure Name Priority Date/Time Associated Diagnosis Comments MG MAMMO DIGITAL SCREENING W SCOTT BILAT Routine 01/13/2024 10:32 AM EST Encounter for screening mammogram for breast cancer TIMUR DEXA AXIAL SKELETON Routine 01/11/2023 8:11 AM EST Other specified disorders of bone density and structure, other site from Last 3 Months or Most Recently Relevant to Health Maintenance Results * MG Mammo Digital Screening w Scott bilat (01/13/2024 10:32 AM EST) Anatomical Region Laterality Modality Breast Bilateral Mammography 01/13/2024 11:4 4 AM EST Impressions 01/13/2024 11:51 AM EST No mammographic evidence of malignancy. No suspicious interval change. A negative mammogram in the presence of a clinically suspicious palpable abnormality does not preclude the possibility of malignancy or alter the indications for biopsy. ASSESSMENT: BI-RADS 2: BENIGN RECOMMENDATION(S): 1: Routine screening mammogram BILATERAL in 1 year. -------- FINAL REPORT -------- Dictated By: Isauro Alaniz Dictated Date: 01/13/2024 11:44 ET Assigned Physician: Isauro Alaniz Reviewed and Electronically Signed By: Isauro Alaniz Signed Date: 01/13/2024 11:51 ET Workstation ID: [id number] Transcribed By: Self Edit Transcribed Date: 01/13/2024 11:44 ET Narrative 01/13/2024 11:51 AM EST EXAM: SCREENING MAMMOGRAPHY, BILATERAL HISTORY: SCREENING. Maternal grandmother with history of breast cancer. COMPARISON: 01/10/2023, 11/26/2021, 11/08/2020, 11/03/2019 TECHNIQUE: Synthesized CC and MLO projections of each breast. Tomosynthesis of each breast in the CC and MLO projections. ADDITIONAL IMAGING: None Computer-aided detection was employed with the [employer] AI 3-D. TISSUE DENSITY: There are scattered areas of fibroglandular density. (BI-RADS category B) FINDINGS: RIGHT BREAST: No suspicious mass. No suspicious calcification. No distortion. No additional suspicious right breast findings LEFT BREAST: No suspicious mass. No suspicious calcification. No distortion. No additional suspicious left breast findings No change in the region of biopsy site markers in the upper outer left breast associated small circumscribed asymmetries. Procedure Note Isauro Alaniz MD - 01/13/2024 EXAM: SCREENING MAMMOGRAPHY, BILATERAL HISTORY: SCREENING. Maternal grandmother with history of breastcancer. COMPARISON: 01/10/2023, 11/26/2021, 11/08/2020, 11/03/2019 TECHNIQUE: Synthesized CC and MLO projections of each breast.Tomosynthesis of each breast in the CC and MLO projections. ADDITIONAL IMAGING: None Computer-aided detection was employed with the [employer] AI 3-D. TISSUE DENSITY: There are scattered areas of fibroglandular density.(BI-RADS category B) FINDINGS: RIGHT BREAST: No suspicious mass. No suspicious calcification. No distortion. Noadditional suspicious right breast findings LEFT BREAST: No suspicious mass. No suspicious calcification. No distortion. Noadditional suspicious left breast findings No change in the region of biopsy site markers in the upper outer leftbreast associated small circumscribed asymmetries. IMPRESSION: No mammographic evidence of malignancy. No suspicious interval change. A negative mammogram in the presence of a clinically suspicious palpableabnormality does not preclude the possibility of malignancy or alter theindications for biopsy. ASSESSMENT: BI-RADS 2: BENIGN RECOMMENDATION(S): 1: Routine screening mammogram BILATERAL in 1 year. -------- FINAL REPORT -------- Dictated By: Isauro Alaniz Dictated Date: 01/13/2024 11:44 ET Assigned Physician: Isauro Alaniz Reviewed and Electronically Signed By: Isauro Alaniz Signed Date: 01/13/2024 11:51 ET Workstation ID: [id number] Transcribed By: Self Edit Transcribed Date: 01/13/2024 11:44 ET Donald Knox MD IMG BI PROCEDURES Final Result * TIMUR DEXA AXIAL SKELETON (01/11/2023 8:11 AM EST) Anatomical Region Laterality Modality Mammography 01/10/2023 2:51 PM EST Narrative 01/11/2023 8:11 AM EST Diagnostic Imaging Department [address] [place] [address] [id number] Patient: SWEETIE MONDRAGON /Age/Sex: 1960 - 62 - F Unit#: [id number] Location/Status: SPDIMAM/REG CLI [facility] Order[facility] Physician: DONALD KNOX MD Timur Dexa Axial Skeleton - 01/10/23 [id number] Report Status:Signed HISTORY: The patient is a 62-year-old postmenopausal female with clinical concern for metabolic bone disease. FINDINGS: Dual energy x-ray absorptiometry of the lumbar spine and femurs is performed. The mean bone mineral density at L3-4 is 1.071 gm/cm2 which is 89% of that of young normals and 104% of that of age matched controls. This yields a T- score of -1.1 and a Z-score of 0.4 which is diagnostic of osteopenia. The mean bone mineral density of the femurs bilaterally is 0.949 gm/cm2 which is 94% of that of young normals and 109% of that of age matched controls. This yields a T-score of -0.5 and a Z-score of 0.6 and there is therefore no evidence of osteoporosis or osteopenia here. However, the T-score of the right femoral neck is -1.7 and that of the left femoral neck is -1.6 which is diagnostic of osteopenia. IMPRESSION: 1. Osteopenia. 2. FRAX analysis yields a 10-year probability of major osteoporotic fracture of 9.5% and a 10-year probability of hip fracture of 1.1%. Code 12309 Dictating Physician: CHRISTINE ANSARI MD Electronically Signed by: CHRISTINE ANSARI MD Dic Date/Time: 01/11/23809 Sign date/Time: 01/11/23810 Procedure Note Christine Ansari MD - 03/22/2023 Diagnostic Imaging Department [address] [place] [address] Patient: SWEETIE MONDRAGON /Age/Sex: 1960 - 62 - F Unit#: [id number] Location/Status: [facility] CLI Mnemonic/Ordering Site: [facility] Ordering Physician: DONALD KNOX MD [facility] Dexa Axial Skeleton - 01/10/23 - 1518 Report Status:Signed HISTORY: The patient is a 62-year-old postmenopausal female withclinical concern for metabolic bone disease. FINDINGS: Dual energy x-ray absorptiometry of the lumbar spine and femursis performed. The mean bone mineral density at L3-4 is 1.071 gm/cm2 which is89% of that of young normals and 104% of that of age matched controls. Thisyields a T- score of -1.1 and a Z-score of 0.4 which is diagnostic of osteopenia. The mean bone mineral density of the femurs bilaterally is 0.949 gm/gb3lmnkd is 94% of that of young normals and 109% of that of age matched controls.This yields a T-score of -0.5 and a Z-score of 0.6 and there is therefore noevidence of osteoporosis or osteopenia here. However, the T-score of the rightfemoral neck is -1.7 and that of the left femoral neck is -1.6 which is diagnosticof osteopenia. IMPRESSION: 1. Osteopenia. 2. FRAX analysis yields a 10-year probability of major osteoporoticfracture of 9.5% and a 10-year probability of hip fracture of 1.1%. Code 22199 Dictating Physician: CHRISTINE ANSARI MD Electronically Signed by: CHRISTINE ANSARI MD Dic Date/Time: 01/11/23809 Sign date/Time: 01/11/23810 Donald Knox MD IMG BI PROCEDURES Final Result from Last 3 Months or Most Recently Relevant to Health Maintenance Insurance MEDICARE [facility] Care Teams Ceramic Artist Relationship Specialty Start Date End Date Donald Knox MD [address] [place] [address] PCP - General Internal Medicine 01/13/24
== END 2024-09-12 09:50 | disposition home or self-care (01) ==
LOC: HO.HMCH 08:55
PROVIDERS: PCP Physician Assistant; Visit Provider Physician Assistant
DX: E78.2 Mixed hyperlipidemia (principal); R60.0 Localized edema; Z82.49 Family history of ischemic heart disease and other diseases of the circulatory system

== ENCOUNTER → 2024-09-12 08:55 | Outpatient (BNVA) | payer MEDICARE, SELFPAY | PROVIDERS: PCP Physician Assistant; Visit Provider Physician Assistant | DX: E78.2 Mixed hyperlipidemia (principal); R60.0 Localized edema; Z82.49 Family history of ischemic heart disease and other diseases of the circulatory system | CPT/HCPCS: 96127; 99212 ==

== ENCOUNTER 2024-09-13 07:06 | Outpatient (REF) | payer MEDICARE, SELFPAY ==
--- OUTSIDE RECORDS SUMMARY | 2024-09-13 07:08 | XMS_ITS | Clinical Summary ---
Author Organization [facility] Address [address] [place] [address] Phone Care Team Providers Care Senior Sales Consultant Name Role Phone Donald Knox MD Primary Care Provider [phone] Surgical History Surgery Date Site/Laterality Comments BREAST [...] Signed Date: 01/13/2024 11:51 ET Workstation ID: [id number] Transcribed By: Self Edit Transcribed Date: 01/13/2024 11:44 ET Narrative 01/13/2024 11:51 AM EST EXAM: SCREENING MAMMOGRAPHY, BILATERAL HISTORY: SCREENING. Maternal grandmother with history of breast cancer. COMPARISON: 01/10/2023, 11/26/2021, 11/08/2020, 11/03/2019 TECHNIQUE: Synthesized CC and MLO projections of each breast. Tomosynthesis of each breast in the CC and MLO projections. ADDITIONAL IMAGING: None Computer-aided detection was employed with the [employer] AI 3-D. TISSUE DENSITY: There are scattered [...] Signed Date: 01/13/2024 11:51 ET Workstation ID: [id number] Transcribed By: Self Edit Transcribed Date: 01/13/2024 11:44 ET Donald Knox MD IMG BI PROCEDURES Final Result * TIMUR DEXA AXIAL SKELETON (01/11/2023 8:11 AM EST) Anatomical Region Laterality Modality Mammography 01/10/2023 2:51 PM EST Narrative 01/11/2023 8:11 AM EST [facility] Diagnostic Imaging Department [address] [place] [address] [id number] Patient: SWEETIE MONDRAGON /Age/Sex: 1960 - 62 - F Unit#: [id number] Location/Status: SPDIMAM/REG CLI Mnemonic[facility] Ordering Physician: DONALD KNOX MD Timur Dexa Axial Skeleton - 01/10/23 3044 Report Status:Signed HISTORY: The patient is a [...] probability of hip fracture of 1.1%. Code 48264 Dictating Physician: CHRISTINE ANSARI MD Electronically Signed by: CHRISTINE ANSARI MD Dic Date/Time: 01/11/23809 Sign date/Time: 01/11/23810 Procedure Note Christine Ansari MD - 03/22/2023 [facility] Diagnostic Imaging Department [address] [place] [address] Patient: SWEETIE MONDRAGON /Age/Sex: 1960 - 62 - F Unit#: [id number] Location/Status: [facility] CLI Mnemonic/Ordering Site: [facility] Ordering Physician: DONALD KNOX MD [facility] Dexa Axial Skeleton - 01/10/23 - 1518 [...] density of the femurs bilaterally is 0.949 gm/hz4srxbn is 94% of that of young normals [...] probability of hip fracture of 1.1%. Code 36838 Dictating Physician: CHRISTINE ANSARI MD Electronically Signed by: CHRISTINE ANSARI MD Dic Date/Time: 01/11/23809 Sign date/Time: 01/11/23810 Donald Knox MD IMG BI PROCEDURES Final Result from Last 3 Months or Most Recently Relevant to Health Maintenance Insurance MEDICARE [facility] Care Teams Senior Sales Consultant Relationship Specialty Start Date End Date Donald Knox MD [address] [place] [address] PCP - General Internal Medicine 01/13/24
--- OUTSIDE RECORDS SUMMARY | 2024-09-13 07:09 | XMS_ITS | Patient Health Record ---
Author Organization [facility] Address [address] [place] [address] Care Team Providers Care Wine Steward Name Role Phone Lisette VANG, Donald Primary Care Provider Taco Laguerre [phone] Allergies Allergen (clinical drug ingredient) Drug/Non Drug [...] Problem Status W/U Status Risk Notes Problem [id number] Encounter for screening for malignant neoplasm of colon (Z12.11) Active confirmed Problem [id number] Preprocedural examination (Z01.818) Active confirmed Plan Of Treatment Future Test Test Name Order Date COLONOSCOPY 02/15/2019 Insurance Providers Payer Name Payer Address Payer Phone Subscriber Number Group Number Insured Name Patient Relationship to Insured Coverage Start Date Coverage End Date [facility] [employer] CLAIMS [address] [place] [address] [id number] OSKAR MONDRAGON Self - patient is the insured Medical (General) History Medical History History ICD Code Denies CA,DM,CVA,Lung disease,renal dise ase Negative screening colonoscopy in 02/[address] Graf Migraines Hyperlipidemia Surgical History Surgery Date(Month/Year) Right knee replacement-Dr. Walker 2003 RAJESH 2014 Right carpal tunnel 2000
[2024-09-13 07:55] LABS: Hematocrit 39.2 % (37.0-47.0); Hemoglobin 13.4 g/dl (12.0-16.0); Mean Corpuscular HGB Conc 34.2 g/dl (31.0-35.0); Mean Corpuscular Hemoglobin 30.2 pg (27.0-33.0); Mean Corpuscular Volume 88.5 fL (80.0-98.0); NRBC Abs Auto 0.000 X10*3/uL (0.0-0.012); NRBC Pct Auto 0.0 /100WBC (0.0-0.2); Platelet Count 261 X10*3/uL (160-400); Red Blood Count 4.43 X10*6/uL (4.20-5.50); White Blood Count 4.9 X10*3/uL (4.8-10.8)
[2024-09-13 08:29] LABS: Alanine Aminotransferase 26 U/L (0-31); Albumin Level 4.4 g/dL (3.5-5.0); Alkaline Phosphatase 84 U/L (39-117); Anion Gap 11 (12-20); Aspartate Amino Transferase 25 U/L (5-31); Blood Urea Nitrogen 17 mg/dL (9-16); Calcium 9.6 mg/dL (8.4-10.2); Carbon Dioxide 28 mmol/L (22-29); Chloride 105 mmol/L (96-108); Cholesterol 169 mg/dL (<200); Estimated Glomerular Filt Rate > 60; HDL Cholesterol 54 mg/dL (>40); Potassium 3.9 mmol/L (3.3-5.1); Sodium 140 mmol/L (135-145); Total Protein 6.8 g/dL (6.5-8.0); Triglycerides 79 mg/dL (<150)
== END 2024-09-13 07:07 | disposition home or self-care (01) ==
LOC: HO.LAB 07:06
PROVIDERS: PCP Physician Assistant; Visit Provider Physician Assistant
DX: E78.2 Mixed hyperlipidemia (principal)
CPT/HCPCS: 36415; 80053; 80061; 84443; 85027

== ENCOUNTER 2024-10-30 10:25 | Outpatient (REF) | payer MEDICARE, SELFPAY ==
--- NOTE | ~2024-10-30 | US_ITS ---
EXAMINATION: US LOWER EXTREMITY VENOUS (REFLUX EXAM), BILATERAL CLINICAL INFORMATION: Lower extremity swelling COMPARISON: None. TECHNIQUE: Color flow triplex imaging and compression Doppler was performed to evaluate both the deep and the superficial systems bilaterally. To evaluate the superficial system, the examination was performed in the upright position. Color-flow Doppler ultrasound and compression ultrasound were utilized. In addition, maneuvers were utilized to demonstrate reflux. FINDINGS: 1. DEEP VENOUS ULTRASOUND OF THE RIGHT LOWER EXTREMITY: Common Femoral Vein: Compressible, normal respiratory variation and augmented flow. Femoral Vein: Compressible, normal color flow and augmentation. Popliteal Vein: Compressible, normal augmentation. Deep Reflux: There is no evidence of reflux in the deep system in either the common femoral vein, superficial femoral or the popliteal vein. 2. SUPERFICIAL ULTRASOUND WITH DOPPLER OF RIGHT LOWER EXTREMITY: GREAT SAPHENOUS VEIN: Saphenofemoral Junction: 0.8 cm; Reflux: 0 ms Proximal Thigh: 0.6 cm; Reflux: 0 ms Mid Thigh: 0.6 cm; Reflux: 0 ms Distal Thigh: 0.5 cm; Reflux: 0 ms At Knee: 0.4 cm; Reflux: 0 ms Below Knee/Proximal Calf: 0.4 cm; Reflux: 0 ms Mid Calf: 0.3 cm; Reflux: 0 ms Ankle/Distal Calf: 0.3 cm; Reflux: 0 ms Lateral accessory GREAT SAPHENOUS VEIN: Saphenofemoral Junction: 0.3 cm; Reflux: 0 ms Mid Thigh: 0.3 cm; Reflux: 1200 ms Medial accessory GREAT SAPHENOUS VEIN: Saphenofemoral Junction: 0.2 cm; Reflux: 0 ms Mid Thigh: 0.2 cm; Reflux: 0 ms SMALL SAPHENOUS VEIN: Drainage: Thigh extension Saphenopopliteal Junction: 0.4 cm; Reflux: 0 ms Mid calf: 0.3 cm; Reflux: 0 ms Distal: 0.3 cm; Reflux: 0 ms VEIN OF GIACOMINI: Size: NA cm Reflux: NA ms PERFORATORS: Location: Small saphenous vein, mid Size: 0.2 cm Reflux: 0 ms Location: Greater saphenous vein, distal thigh Size: 0.3 cm Reflux: 0 ms Location: Greater saphenous vein, distal thigh Size: 0.3 cm Reflux: 0 ms Location: Greater saphenous vein, at knee Size: 0.1 cm Reflux: 0 ms Location: Greater saphenous vein, proximal calf Size: 0.2 cm Reflux: 0 ms Location: Greater saphenous vein, distal calf Size: 0.3 cm Reflux: 0 ms Location: Greater saphenous vein, distal calf Size: 0.2 cm Reflux: 0 ms VARICOSITIES > 3mm: Location: Small saphenous vein, mid Size: 0.3 cm Reflux: 0 ms 3. DEEP VENOUS ULTRASOUND OF THE LEFT LOWER EXTREMITY: Common Femoral Vein: Compressible, normal respiratory variation and augmented flow. Femoral Vein: Compressible, normal color flow and augmentation. Popliteal Vein: Compressible, normal augmentation. Deep Reflux: There is no evidence of reflux in the deep system in either the common femoral vein, superficial femoral or the popliteal vein. 4. SUPERFICIAL ULTRASOUND WITH DOPPLER OF LEFT LOWER EXTREMITY: GREAT SAPHENOUS VEIN: Saphenofemoral Junction: 0.7 cm; Reflux: 0 ms Proximal Thigh: 0.6 cm; Reflux: 0 ms Mid Thigh: 0.4 cm; Reflux: 0 ms Distal Thigh: 0.4 cm; Reflux: 0 ms At Knee: 0.3 cm; Reflux: 0 ms Below Knee/Proximl calf: 0.3 cm; Reflux: 0 ms Mid Calf: 0.3 cm; Reflux: 0 ms Distal Calf/Ankle: 0.4 cm; Reflux: 0 ms Lateral accessory GREAT SAPHENOUS VEIN: Saphenofemoral Junction: 0.3 cm; Reflux: 0 ms Mid Thigh: 0.2 cm; Reflux: 0 ms SMALL SAPHENOUS VEIN: There is duplication small saphenous vein with tip of the vessel extending between the proximal small saphenous vein and midcalf Drainage: Popliteal vein Saphenopopliteal Junction: 0.2 cm; Reflux: 0 ms Mid calf: 0.2 cm; Reflux: 0 ms Distal calf: 0.3 cm; Reflux: 0 ms Duplicated small saphenous vein draining into proximal small saphenous vein. Two Vessels extend from the small saphenous vein and coalescent to a single vessel, mid calf. 0.2 cm; Reflux: 0 ms VEIN OF GIACOMINI: Size: 0.2 Reflux: 0 PERFORATORS: Location: Greater saphenous vein, mid thigh Size: 0.2 cm Reflux: 0 ms Location: Greater saphenous vein, distal thigh Size: 0 point cm Reflux: 0 ms Location: Greater saphenous vein, proximal calf Size: [ cm Reflux: 0 ms Location: Greater saphenous vein, mid calf Size: 0.3 cm Reflux: 0 ms VARICOSITIES > 3mm: Location: None Imaged US/US venous insuf bilat IMPRESSION: Right: There is incompetence of a lateral accessory great saphenous vein in the mid thigh. Left: No venous reflux is demonstrated. Electronically signed by: Juan Francisco Corona MD 10/30/2024 12:14 PM EDT RP
--- OUTSIDE RECORDS SUMMARY | 2024-10-30 13:41 | XMS_ITS | Patient Health Record ---
Author Organization [facility] Address [address] [place] [address] Care Team Providers Care Industrial Safety And Health Manager Name Role Phone Lisette VANG, Donald Primary Care Provider Taco Laguerre [phone] Allergies Allergen (clinical drug ingredient) Drug/Non Drug [...] Problem Status W/U Status Risk Notes Problem [id number] Encounter for screening for malignant neoplasm of colon (Z12.11) Active confirmed Problem [id number] Preprocedural examination (Z01.818) Active confirmed Plan Of Treatment Future Test Test Name Order Date COLONOSCOPY 02/15/2019 Insurance Providers Payer Name Payer Address Payer Phone Subscriber Number Group Number Insured Name Patient Relationship to Insured Coverage Start Date Coverage End Date [facility] PROFESSIONAL CLAIMS [address] [place] [address] [phone] [id number] OSKAR MONDRAGON Self - patient is the insured Medical (General) History Medical History History ICD Code Denies SD,DM,CVA,Lung disease,renal dise ase Negative screening colonoscopy in 02/[address] Graf Migraines Hyperlipidemia Surgical History Surgery Date(Month/Year) Right knee replacement-Dr. Walker 2003 RAJESH 2014 Right carpal tunnel 2000
--- OUTSIDE RECORDS SUMMARY | 2024-10-30 13:41 | XMS_ITS | Clinical Summary ---
Author Organization [facility] Address [address] [place] [address] Phone Care Team Providers Care Customer Assistance Associate Name Role Phone Donald Knox MD Primary Care Provider [phone] Surgical History Surgery Date Site/Laterality Comments BREAST [...] Health Maintenance Due Date Last Done Comments Pneumococcal Vaccine: 50+ Years (1 of 1 [...] Additional history exists Influenza Vaccine (#1) 2024 4, 11/06/2022, 10/24/2021, Additional history exists Breast Cancer [...] Signed Date: 01/13/2024 11:51 ET Workstation ID: [id number] Transcribed By: Self Edit Transcribed Date: 01/13/2024 11:44 ET Narrative 01/13/2024 11:51 AM EST EXAM: SCREENING MAMMOGRAPHY, BILATERAL HISTORY: SCREENING. Maternal grandmother with history of breast cancer. COMPARISON: 01/10/2023, 11/26/2021, 11/08/2020, 11/03/2019 TECHNIQUE: Synthesized CC and MLO projections of each breast. Tomosynthesis of each breast in the CC and MLO projections. ADDITIONAL IMAGING: None Computer-aided detection was employed with the [employer] AI 3-D. TISSUE DENSITY: There are scattered [...] Signed Date: 01/13/2024 11:51 ET Workstation ID: [id number] Transcribed By: Self Edit Transcribed Date: 01/13/2024 11:44 ET Donald Knox MD IMG BI PROCEDURES Final Result * TIMUR DEXA AXIAL SKELETON (01/11/2023 8:11 AM EST) Anatomical Region Laterality Modality Mammography 01/10/2023 2:51 PM EST Narrative 01/11/2023 8:11 AM EST [facility] Diagnostic Imaging Department [address] [place] [address] Patient: SWEETIE MONDRAGON Johann /Age/Sex: 1960 - 62 - Unit#: [id number] Location/Status: [facility]/REG CLI Mnemonic/Ordering Site: [facility] Ordering Physician: DONALD KNOX MD Timur Dexa Axial Skeleton - 01/10/23 - 3825 Report Status:Signed HISTORY: The patient is a [...] probability of hip fracture of 1.1%. Code 30336 Dictating Physician: CHRISTINE ANSARI MD Electronically Signed by: CHRISTINE ANSARI MD Dic Date/Time: 01/11/23809 Sign date/Time: 01/11/23810 Procedure Note Christine Ansari MD - 03/22/2023 [facility] Diagnostic Imaging Department [address] [place] [address] Patient: SWEETIE MONDRAGON /Age/Sex: 1960 - 62 - F Unit#: [id number] Location/Status: SPD[facility]A/REG CLI Mnemonic/Ordering Site: [facility] Ordering Physician: DONALD KNOX MD [facility] Dexa Axial Skeleton - 01/10/231518 Report Status:Signed HISTORY: The patient is a [...] density of the femurs bilaterally is 0.949 gm/yl9cdgzf is 94% of that of young normals [...] probability of hip fracture of 1.1%. Code 55315 Dictating Physician: CHRISTINE ANSARI MD Electronically Signed by: CHRISTINE ANSARI MD Dic Date/Time: 01/11/23809 Sign date/Time: 01/11/23810 Donald Knox MD IMG BI PROCEDURES Final Result from Last 3 Months or Most Recently Relevant to Health Maintenance Insurance MEDICARE [facility] Care Teams Customer Assistance Associate Relationship Specialty Start Date End Date Donald Knox MD [address] [place] [address] PCP - General Internal Medicine 01/13/24
== END 2024-10-30 10:26 | disposition home or self-care (01) ==
LOC: HO.US 10:25
PROVIDERS: PCP Physician Assistant; Visit Provider Physician Assistant
DX: R60.0 Localized edema (principal)
CPT/HCPCS: 93970

== ENCOUNTER → 2024-10-30 10:27 | Outpatient (BNV) | payer MEDICARE, SELFPAY | PROVIDERS: PCP Physician Assistant; Visit Provider Radiology Diagnostic Radiology | DX: I87.391 Chronic venous hypertension (idiopathic) with other complications of right lower extremity (principal) | CPT/HCPCS: 93970 ==

== ENCOUNTER 2025-01-08 14:20 | Outpatient (AMB) | payer MEDICARE, SELFPAY ==
--- NOTE | 2025-01-08 14:34 | A.OFFVIS_ITS ---
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 Patient states her right leg is worse. States she gets sharp pains. Pain started about 2 months ago. 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 She had undergone venous insufficiency testing on 10/30/2024. The patient is experiencing significant leg pain that causes limping, describing it as worse than a knee replacement. The pain occurs with walking or bending. The patient notes swelling and a large bump lateral aspect of right knee, and she associates pain with this. To manage swelling, the patient wears compression socks, especially during activities such as hiking. In general an active person notes that the right knee appears to be causing somewhat limitations. Of note she has had a right knee replacement in the past by Dr. Lay on 06/05/2021.. [facility] Medical History History of skin cancer Hx of migraines Hyperlipidemia Surgical History Hx of colonoscopy History of total right knee replacement History of carpal tunnel surgery of right wrist History of meniscectomy of right knee History of bunionectomy of left great toe History of hysterectomy Family History Mother No problems noted. Father No problems noted. 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[place] 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: No Hearing needs: No Vision needs: No Review of Systems Const All systems reviewed & are unremarkable except as noted in HPI and below Reports no additional complaints ENT Reports Normal hearing present Card Denies chest pain, Denies chest pain at rest, Denies chest pain with activity and Denies pedal edema Resp Denies cough GI Denies abdominal pain Musc Denies abnormal gait, Denies muscle cramps and Denies radiating pain into limb Skin/Breast Denies skin ulcer and Denies wounds Neuro Reports Normal hearing present and Denies abnormal gait Psych Reports no additional complaints Physical Exam Const General: cooperative, healthy appearing and comfortable Orientation/consciousness: oriented to person, oriented to place and oriented to time HEENT Head: Yes normal to inspection Neck Neck: Yes normal visual inspection Carotids: no bruits Chest Chest palpation & inspection: normal inspection of the chest Resp Effort & Inspection: normal respiratory effort and able to speak in complete sentences Auscultation: clear to auscultation bilaterally, no crackles, no rales, no r honchi and no wheezes Cardio Rate: regular rate Rhythm: regular rhythm Heart sounds: S1 normal heart sound present and S2 normal heart sound present Bruits: no carotid bruits Peripheral pulses: Peripheral pulses 2+ throughout GI Inspection: Yes normal to inspection Skin Wounds: no wounds Hair: normal Neuro General: oriented to person, oriented to place and oriented to time Cranial nerves: Yes CN's II-XII intact bilaterally and Yes Normal hearing present Cognition (Neuro): normal cognition Motor exam (neuro): 5/5 motor strength present throughout Extrem Other: venous exam: +1 edema right greater than left General: No clubbing, No cyanosis and Yes edema Psych Appearance: grossly normal Mental Status: mental status grossly normal Speech and movement: Normal speech and movement present Results Reviewed Results Reviewed: Brief summary of venous insufficiency testing is as follows: right great saphenous vein: negative right small saphenous vein: negative right accessory vein: none present left great saphenous vein: negative left small saphenous vein: negative left accessory vein: none present Please note there is no evidence of any venous aneurysms or significant tortuosity Assessment & Plan Assessment & Plan (1) Bilateral lower extremity edema: Code(s): R60.0 - Localized edema Category: Medical Plan: I explained to the patient that from a vascular standpoint, the examination was normal, revealing good bounding pulses and normal veins. I relayed my assessment that the presenting pain is orthopedic in nature, and we will attempt to expedite an appointment with an plant controls specialist. We discussed the chronic leg swelling, which has an element of lymphedema, and I affirmed that the current use of compression socks is appropriate management. I informed the patient that special compression boots could be an option if the swelling worsens, although they are not needed at this time, and advised a return visit if the swelling becomes more problematic. Once again I do recommend follow-up with orthopedics. She will follow up with us on an as-needed basis. Thank you for allowing us to assist in her care. Coding Level of Care Code Est Pt Level 4 (92000) Diagnoses Bilateral lower extremity edema R60.0
--- OUTSIDE RECORDS SUMMARY | 2025-01-08 15:20 | XMS_ITS | Encounter Summary ---
Author Organization [facility] Address [address] [place] [address] Phone Care Team Providers Care Tenon Machine Operator Name Role Phone Baljinder Murcia Primary Care Provider + Reason for Visit * Reason Comments Ear Fullness Pt presents for eval of bilateral ear fullness Encounter Details Date Type Department Care Team (Late st Contact Info) Description 01/08/2025 3:20 PM EST Office Visit [facility] [address] [address] Ofelia Diamond, FORMULA BOTTLER [address] [place] [address] [email or web address] Impacted cerumen of right ear (Primary Dx) Social History Tobacco Use Types Packs/Day Years Used Date Smoking Tobacco: Never Smokeless Tobacco: Never Alcohol Use Standard Drinks/Week Comments Yes 0 [...] on file Sexual Orientation Not on file documented as of this encounter Last Filed Vital Signs Vital Sign Reading Time Taken Comments Blood Pressure 119/78 01/08/2025 3:24 PM EST Pulse 88 01/08/2025 3:24 PM EST Temperature 36.2 C (97.1 F) 01/08/2025 3:24 PM EST Respiratory Rate 17 01/08/2025 3:24 PM EST Oxygen Saturation 98% 01/08/2025 3:24 PM EST Inhaled Oxygen Concentration - - Weight - - Height - - Body Mass Index - - documented in this encounter Progress Notes * Ofelia Diamond CNP - 01/08/2025 3:20 PM EST I obtained verbal consent from the patient or their proxy to record this visit for purposes of producing a draft of the encounter documentation. History of Present Illness 64-year-old female presents for ear blockage. Ear Blockage - Reports sensation of blockage due to cerumen impaction - No associated congestion - History of annual or biennial cerumen removal ROS: Per HPI Vitals: 01/08/25 1524 BP: 119/78 Pulse: 88 Resp: 17 Temp: 36.2 ??C (97.1 ??F) SpO2: 98% Physical Exam General Appearance: General: Pt not in acute distress. Appearance: Normal appearance. Well-developed. Not ill-appearing. Vital signs: Within normal limits HEENT: Right ear cerumen impaction. Left ear WNL. Respiratory: Normal effort Skin: Warm and dry, no rash Neurological: General: No focal deficit present. Mental Status: Alert and oriented to person, place, and time. Psychiatric: Mood normal. Behavior normal. Thought content normal. Judgment normal. Assessment & Plan 1. Cerumen impaction, right - Removed entirely with lavage performed by DANIEL -No evidence of trauma or infection on exam post procedure -Recommend debrox or baby oil drops 2x per week to keep cerumen soft -Follow up PRN future impactions documented in this encounter Plan of Treatment Not on file documented as of this encounter Visit Diagnoses Diagnosis Impacted cerumen of right ear- Primary Impacted cerumen documented in this encounter Care Teams Tenon Machine Operator Relationship Specialty Start Date End Date Baljinder Murcia PA [address] [place] [address] PCP - General Physician Enamel Drier 05/10/24 documented as of this encounter Additional Source Comments The information contained in this document represents components of the legal health record. It is not the complete legal health record.[facility]
--- OUTSIDE RECORDS SUMMARY | 2025-01-08 18:12 | XMS_ITS | Clinical Summary ---
Author Organization [facility] Address [address] [place] [address] Phone Care Team Providers Care Knife Glazer Name Role Phone Baljinder Murcia Primary Care [...] Active Additional Information Patient not taking.Reported on 01/08/2025 Active Problems Problem Noted Date Diagnosed Date Atrophic vaginitis 12/14/2020 Encounters Date Type Department Care Team Description 01/08/2025 3:20 PM EST Office Visit [facility] at [address] [address] Ofelia Diamond, ELENA Impacted cerumen of right ear (Primary Dx) from Last 3 Months Immunizations Immunization Administration Dates Next Due Hepatitis B CpG 11/06/2022 INFLUENZA, SPLIT VIRUS, TRIV ALENT W/ PRESERVATIVE IM 11/02/2020,10/25/2015 Influenza Quadrivalent MDCK Preservative Free IM 11/06/2022,11/08/2018 Influenza Quadrivalent Prese rvative Free IM 10/24/2021,09/30/2019,10/24/2017,2016 RSV Vaccine (monovalent, adjuvanted) 03/22/2023 Tdap 08/12/2017 [...] EST Inhaled Oxygen Concentration - - Weight 64.9 kg (143 lb) 01/27/2022 4:44 PM EST Height 157.5 cm (5' 2 ) 01/27/2022 4:44 PM EST Body Mass Index 26.16 01/27/2022 4:44 PM EST Plan of Treatment Health Maintenance Due Date Last Done Comments LIPID PANEL 1960 DEPRESSION SCREENING 1970 HEPATITIS C SCREENING 1976 SCREENING FOR DIABETES 1993 COLOGUARD 10/13/2003 COLONOSCOPY 10/13/2003 COLORECTAL CANCER SCREENING 10/13/2003 FIT TEST 10/13/2003 FOBT 10/13/2003 SIGMOIDOSCOPY 10/13/2003 VIRTUAL COLONOSCOPY 10/13/2003 PNEUMOCOCCAL VACCINES (50+ years) (1 of 1 - PCV) 2008 06/19/2024 ZOSTER VACCINES (1 of 2) 2008 10/13/2024, 05/0 07/2024 OSTEOPOROSIS SCREENING INITIAL (ONE-TIME) 10/13/2023 INFLUENZA VACCINE (#1) 2024 , 2023, 11/06/2022, Additional history exists COVID-19 VACCINE ( season) 2024 06/19/2024, 2023, 11/06/2022, Additional history exists MAMMOGRAM 01/12/2026 01/13/2024, 12/16, [...] topic Medical Devices Not on file Insurance [employer] MEDEX SUPPLEMENT MEDICARE PART A & B [employer] MEDEX SUPPLEMENT MEDICARE PART A & B [employer] MEDEX SUPPLEMENT MEDICARE PART A & B [employer] MEDEX SUPPLEMENT MEDICARE PART A & B MEDICARE PART A & B [employer] MEDEX SUPPLEMENT MEDICARE PART A & B Care Teams Knife Glazer Relationship Specialty Start Date End Date Baljinder Murcia PA [address] [place] [address] PCP - General Physician Hand Tire Trimmer 05/10/24 Additional Source Comments The information contained in this document represents components of the legal health record. It is not the complete legal health record.[facility]
--- OUTSIDE RECORDS SUMMARY | 2025-01-08 18:13 | XMS_ITS | Clinical Summary ---
Author Organization [facility] Address [address] [place] [address] Phone Care Team Providers Care Chiropractor Assistant Name Role Phone Donny Knox MD Primary Care Provider [phone] Surgical History Surgery Date Site/Laterality Comments BREAST [...] 01/13/2024 10:09 AM EST Plan of Treatment Upcoming Encounters Date Type Department Care Team (Late st Contact Info) Description 02/04/2025 9:30 AM EST Appointment [facility] at [address] [address] Health Maintenance Due Date Last Done Comments Colorectal Cancer Screening: Colonoscopy 1960 Pneumococcal Vaccine: 50+ Years (1 of 1 - PCV) 2008 Zoster Vaccines (1 of 2) 2008 Hepatitis C Screening 01/13/2022 Medicare Annual Wellness [...] Signed Date: 01/13/2024 11:51 ET Workstation ID: [id number] Transcribed By: Self Edit Transcribed Date: 01/13/2024 11:44 ET Narrative 01/13/2024 11:51 AM EST EXAM: SCREENING MAMMOGRAPHY, BILATERAL HISTORY: SCREENING. Maternal grandmother with history of breast cancer. COMPARISON: 01/10/2023, 11/26/2021, 11/08/2020, 11/03/2019 TECHNIQUE: Synthesized CC and MLO projections of each breast. Tomosynthesis of each breast in the CC and MLO projections. ADDITIONAL IMAGING: None Computer-aided detection was employed with the [employer] AI 3-D. TISSUE DENSITY: There are scattered [...] Signed Date: 01/13/2024 11:51 ET Workstation ID: [id number] Transcribed By: Self Edit Transcribed Date: 01/13/2024 11:44 ET Donny Knox MD IM BI PROCEDURES Final Result * TIMUR DEXA AXIAL SKELETON (01/11/2023 8:11 AM EST) Anatomical Region Laterality Modality Mammography 01/10/2023 2:51 PM EST Narrative 01/11/2023 8:11 AM EST [facility] Diagnostic Imaging Department [address] [place] [address] Patient: SWEETIE MONDRAGON /Age/Sex: 1960 - 62 - F Unit#: [id number] Location/Status: SPDIMA/REG I Mnemonic[facility] Ordering Physician: DONNY KNOX MD [facility] Dexa Axial Skeleton - 01/10/231518 Report Status:Signed [...] probability of hip fracture of 1.1%. Code 88285 Dictating Physician: CHRISTINE ANSARI MD Electronically Signed by: CHRISTINE ANSARI MD Dic Date/Time: 01/11/23809 Sign date/Time: 01/11/23810 Procedure Note Christine Ansari MD - 03/22/2023 [facility] Diagnostic Imaging Department [address] [place] [address] Patient: SWEETIE MONDRAGON Johann /Age/Sex: 1960 - 62 - F Unit#: [id number] Location/Status: SPDIMAM/REG CLI Mnemonic[facility] Ordering Physician: DONNY KNOX MD [facility] Dexa Axial Skeleton - [...] density of the femurs bilaterally is 0.949 gm/[id number] is 94% of that of young normals [...] probability of hip fracture of 1.1%. Code 80276 Dictating Physician: CHRISTINE ANSARI MD Electronically Signed by: CHRISTINE ANSARI MD Dic Date/Time: 01/11/23809 Sign date/Time: 01/11/23810 Donny Knox MD IM BI PROCEDURES Final Result from Last 3 Months or Most Recently Relevant to Health Maintenance Insurance [facility]ICARE [facility] Care Teams Chiropractor Assistant Relationship Specialty Start Date End Date Donny Knox MD [address] [place] [address] PCP - General Internal Medicine 01/13/24
--- OUTSIDE RECORDS SUMMARY | 2025-01-08 18:13 | XMS_ITS | Patient Health Record ---
Author Organization [facility] Address [address] [place] [address] Care Team Providers Care Business Employment Specialist Name Role Phone Lisette VANG, Donald Primary Care Provider Taco Laguerre [phone] Allergies Allergen (clinical drug ingredient) Drug/Non Drug Allergy documented on EMR Reaction Allergy Type Onset Date Status doxycycline Doxycycline Unknown Drug Allergy Act yu Reason For Referral No Information Medications Medication SIG (Take, Route, Frequency, Duration) Notes Start Date End Date Status Multivitamin Active Atorvastatin Calcium 10 MG Tablet TAKE 1 TABLET BY MOUTH EVERY DAY Oral; Duration: 90 Active Fioricet Active Calcium Active Immunizations Vaccine Route Administration Date Status Comme nts Influenza Unknown 11/14/2018 Administered Social History Tobacco Use: Social History Observation Description Date Details (start date - stop date) Never Smoker NA - NA Social History Drugs/Alcohol: Social Info Question Answer Notes Alcohol Screen Did you have a drink containing alcohol in the past year? Yes How often did you have a drink containing alcohol in the past year? Never (0 point) How many drinks did you have on a typical day when you were drinking in the past year? 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 Notes: Nonsmoker, very occasional a lcohol Problems Problem Type SNOMED Code ICD Code Onset Dates Problem Status W/U Status Risk Notes Problem Screening for malignant neoplasm of colon (139961641) Encounter for screening for malignant neoplasm of colon (Z12.11) Active confirmed Problem Preprocedural examination (721791006826209) Preprocedural examination (Z01.818) Active confirmed Plan Of Treatment Future Test Test Name Order Date COLONOSCOPY 02/15/2019 Insurance Providers Payer Name Payer Address Payer Phone Subscriber Number Group Number Insured Name Patient Relationship to Insured Coverage Start Date Coverage End Date [facility] [employer] [address] [place] [address] [id number] OSKAR MONDRAGON Self - patient is the insured Medical (General) History Medical History History ICD Code Denies VT,DM,CVA,Lung disease,renal dise ase Negative screening colonoscopy in 02/[address] Graf Migraines Hyperlipidemia Surgical History Surgery Date(Month/Year) Right knee replacement-Dr. Walker 2003 RAJESH 2014 Right carpal tunnel 2000
== END 2025-01-08 14:52 | disposition home or self-care (01) ==
LOC: HO.HVS 14:21
PROVIDERS: PCP Physician Assistant; Visit Provider Surgery Vascular Surgery
DX: R60.0 Localized edema (principal)
CPT/HCPCS: 99214

== ENCOUNTER → 2025-01-08 14:20 | Outpatient (BNVA) | payer MEDICARE, SELFPAY | PROVIDERS: PCP Physician Assistant; Visit Provider Surgery Vascular Surgery | DX: R60.0 Localized edema (principal) | CPT/HCPCS: 99212 ==

== ENCOUNTER 2025-01-21 07:20 | Emergency (ER) | payer MEDICARE, SELFPAY ==
--- NOTE | ~2025-01-21 | XR_ITS ---
EXAMINATION: XR KNEE, RIGHT CLINICAL INFORMATION: pain and swelling, no trauma COMPARISON: Previous x-ray most recent August 2021 TECHNIQUE: 2 views of the right knee. FINDINGS: Hinged 3 component right knee replacement. No fracture or dislocation. There is new lucency seen against the cement line of the stem of the femoral component and question against the proximal lateral tibial component and stem. There is soft tissue calcification or ossification adjacent to the lateral femoral condyle that appears unchanged. There is a small joint effusion. There are punctate radiopaque densities in the soft tissues anteriorly similar to previous exam. XR/XR knee RT 2V IMPRESSION: Right 3 component knee replacement. New lucency adjacent to the stem of the femoral component and lateral side of the proximal tibial component and stem questionable for loosening. Small joint effusion. Electronically signed by: Caitlyn Goodman MD 01/21/2025 08:38 AM [facility]
--- NOTE | ~2025-01-21 | US_ITS ---
EXAMINATION: US TRIPLEX LOWER EXTREMITY, RIGHT CLINICAL INFORMATION: Pain and swelling COMPARISON: Previous venous ultrasound exam October 2024 and right knee x-ray from the same day TECHNIQUE: Color-flow triplex imaging with spectral analysis and compression Doppler were performed on the right lower extremity. FINDINGS: Respiratory variation, normal compression and augmented flow are noted throughout the right lower extremity. The visualized common femoral vein, superficial femoral vein, profunda femoral vein, popliteal vein and midcalf peroneal and posterior tibial venous segments show no evidence of deep venous thrombosis. There is a small anterior joint effusion and larger fluid collection posterior to the knee. US/US venous duplex LE RT IMPRESSION: No evidence of deep venous thrombosis involving the right lower extremity. Small anterior joint effusion and larger fluid collection posterior to the knee. Electronically signed by: Caitlyn Goodman MD 01/21/2025 09:08 AM [facility]
[2025-01-21 07:27] VITALS: BP 129/60; PULSE 88; RESP 18; TEMP 36.3; O2SAT 99; BMI 27.9
--- NOTE | 2025-01-21 07:43 | ED_ITS ---
HPI - Extremity Injury (Lower) General Chief Complaint: Extremity Injury, Lower Stated Complaint: Knee Leg Pain Time Seen by Provider: 01/21/25 07:39 Source: patient, RN notes reviewed and old records reviewed Mode of arrival: ambulatory Limitations: no limitations History of Present Illness ED Provider: Janice Bennett PA-C HPI Narrative: Sweetie is a 64-year-old female with a history of right total knee arthroplasty (TKA) performed three years ago by Dr. Lay and prior posterior cruciate ligament tear. She reports progressive, severe right knee pain beginning approximately three weeks ago without clear inciting trauma. She completed a 160-mile hike in [place] (September), walking 12?15 mi/day without issue, but the current pain ?is unlike anything I?ve experienced.? Symptoms: * Pain: constant, deep, beneath the knee joint; worsened over the past three weeks. * Swelling: intermittent. * No redness, no warmth. * No falls or trauma; no seasonal (cold weather) correlation. * Functional impact: unable to train for planned marathon walking/running. Prior care: Orthopedic urgent care prescribed meloxicam (caused nausea, no relief); blood cultures drawn with no growth. Joint aspiration was not performed due to provider preference. She has been unable to obtain an orthopedic appointment until February. She has tried ice but no compression, topical agents, or bracing to date. Review of Systems: * Musculoskeletal: Positive for right knee pain and intermittent swelling. * Skin: Denies redness. * Cardiovascular: Denies calf pain Related Data Previous Rx's ?Medication ?Instructions ?Recorded atorvastatin 20 mg tablet 20 mg PO DAILY #90 tabs 12/17 trazodone 50 mg tablet 50 mg PO BEDTIME #90 tabs celecoxib 200 mg capsule (Celebrex) 200 mg PO BID 14 d ays #28 caps 01/24/25 Allergies Allergy/AdvReac Type Severity Reaction Status Date / Time doxycycline (DOXYCYCLINE) Allergy Unknown RASH Verified 01/24/25 13:07 Review of Systems Review of Systems: Yes all other systems are reviewed and are negative PMFSH Past Medical History Attestation statement: The following information was validated with the patient. Source: old records reviewed and nursing notes reviewed Medical History History of skin cancer Hx of migraines Hyperlipidemia Surgical History Hx of colonoscopy History of total right knee replacement History of carpal tunnel surgery of right wrist History of meniscectomy of right knee History of bunionectomy of left great toe History of hysterectomy Family History Family History Mother No problems noted. Father No problems noted. 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 No septic or ill-appearing. Vitals reviewed normal, PMH/Social and Surgical hx reviewed including allergies and current medications. - reviewed for prior visits here Head: Normocephalic, no obvious trauma or skin lesions noted. Eyes: EOMI, no pallor ENMT: moist oral mucosa Neck: trachea midline Cardiovascular: peripheral perfusion normal, Regular heart rate, regular rhythm, cap refill < 3 secs, distal pulses 2+ Respiratory: no respiratory distress Abdomen: nondistended Extremities: warm and moving without difficulty with exception to: Right knee: Healed surgical scar. No erythema, warmth, or drainage. No palpable joint effusion. No obvious deformity or instability on gentle stress. Neurova scular status intact distally (sensation and pulses present). Psych: Cooperative Neuro: Alert and oriented.? Vital Signs: Vital Signs: Last Vital Signs Temp 97.3 F 01/21/25 11:36 Pulse 88 01/21/25 11:36 Resp 18 01/21/25 11:36 BP 129/60 01/21/25 11:36 Pulse Ox 99 01/21/25 11:36 O2 Del Method Room Air 01/21/25 11:36 BMI result Body Mass Index 27.9 Medical Decision Making Medical Decision Making MDM Narrative: 64-year-old female with chronic right knee arthralgia status-post TKA, now with acute exacerbation. Imaging suggests possible loosening of components; DVT ruled out. Problem #1: Right knee pain s/p total knee arthroplasty ? possible prosthetic loosening / hardware malfunction Assessment: Acute flare of chronic arthralgia with imaging evidence of hardware loosening and soft-tissue fluid collections; no signs of infection or neurovascular compromise today. Plan: * Provided hinged knee brace for daytime use; instructed patient not to wear at night. * Compression recommended for soft-tissue swelling as tolerated. * Expedited outpatient orthopedic follow-up requested; ED note and imaging to be cc?d to Dr. Lay. * Return precautions reviewed: increasing pain, redness, fever, inability to bear weight, or neurovascular changes. * No new medications prescribed today. Problem #2: Concern for DVT ? ruled out Assessment: Venous duplex negative for DVT. Plan: * No anticoagulation required. * Patient informed of negative result and advised to seek care if new calf pain or swelling develops. 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 Imaging demonstrates new lucency adjacent to the femoral stem and lateral proximal tibial component with small anterior joint effusion and larger posterior fluid collection, concerning for possible hardware loosening.?Periprosthetic joint infection has been adequately excluded?based on absence of fever, lack of erythema or warmth on examination, negative blood cultures, and no clinical signs of septic arthritis (no purulent effusion, no systemic signs).[2]?DVT has been ruled out by venous duplex ultrasound. The patient has intact neurovascular status distally with no evidence of instability or deformity on examination.?Outpatient orthopedic management is appropriate?given the absence of acute infection, neurovascular compromise, or inability to bear weight.?Aseptic loosening is a common cause of late-stage TKA failure (>2 years post-operatively) and typically presents with mechanical pain without systemic signs. While revision surgery may ultimately be required for symptomatic prosthetic loosening with radiographic evidence of component migration, this can be safely planned in the outpatient setting with appropriate orthopedic follow-up.?The patient has been provided supportive care including a hinged knee brace for daytime use and compression for soft-tissue swelling, with clear return precautions for signs of infection (fever, erythema, increasing pain), neurovascular changes, or inability to bear weight. Expedited outpatient orthopedic evaluation has been arranged with imaging and clinical documentation forwarded to the original surgeon for definitive management planning. . Differential Diagnosis Differential Diagnoses: The differential diagnosis associated with the presentation includes internal knee derangement VTE hardware malfunction arthritis Admission/Observation Consideration of admission/observation: Escalation of care including admission/observation considered Patient would have been admitted to the hospital had her work up had any findings where hospital admission was appropriate and her clinical presentation warranted hospital admission. Independent Interpretation I performed an independent interpretation of an: Plain X-Ray and Ultrasound Interpretation: no fracture on xray, U/S without obvious clot Radiology Impression Discussion of test interpretation with radiology: I have reviewed the radiologist's reading. Radiologist Impression: XR: IMPRESSION: Right 3 component knee replacement. New lucency adjacent to the stem of the femoral component and lateral side of the proximal tibial component and stem questionable for loosening. Small joint effusion this was compared to finding on xray on 08/21/21:IMPRESSION: Total right knee prosthesis in alignment. The joint space right knee is increased likely secondary to short limb length. No periprostatic fracture or loosening suspected along the distal femur or the proximal tibia. Minimal reduction in medial and lateral compartment joint space left knee likely early degenerative changes. External Record Review External record reviewed: Outpatient record and Prior outpatient radiology Prescription Management I considered prescription management with: Pain Medication Chronic Conditions Patient?s care impacted by: Other Discharge Plan Discharge Clinical Impression: Effusion of knee joint right, Loose right total knee arthroplasty Patient Disposition: Home, Self-Care Additional Instructions: Emergency Department Discharge Summary - Discharging Provider: Janice Bennett PA-C CHIEF COMPLAINT Severe right knee pain and swelling for three weeks. HISTORY OF PRESENT ILLNESS Sweetie is a 64-year-old female with a history of right total knee arthroplasty (TKA) performed three years ago by Dr. Lay. She presented to the emergency department with progressive, severe right knee pain that began approximately three weeks ago without clear inciting trauma. She described the pain as constant, deep, and beneath the knee joint, unlike anything I've experienced, despite completing a 160-mile hike in [place] in September without issue. She reports intermittent swelling but denies redness, warmth, falls, or trauma. The symptoms have significantly impaired her ability to train for a planned marathon. Prior to this ED visit, she was seen at orthopedic urgent care where she was prescribed meloxicam (which caused nausea without relief). Blood cultures were drawn with no growth. Joint aspiration was not performed. She was unable to obtain an orthopedic appointment until February. PAST MEDICAL HISTORY - Right total knee arthroplasty (performed three years ago) - Prior posterior cruciate ligament tear - Coronary artery disease - Hyperlipidemia PHYSICAL EXAMINATION Vitals: Stable Right knee examination revealed a healed surgical scar with no erythema, warmth, or drainage. No palpable joint effusion was noted. No obvious deformity or instability was appreciated on gentle stress testing. Neurovascular status was intact distally with normal sensation and palpable pulses. DIAGNOSTIC IMAGING Right Knee Radiographs: New lucency adjacent to the femoral stem and lateral proximal tibial component with small anterior joint effusion and larger posterior fluid collection. Findings concerning for possible prosthetic loosening or hardware malfunction. Right Lower Extremity Venous Duplex Ultrasound: No evidence of deep venous thrombosis. ASSESSMENT 1. Right knee pain status-post total knee arthroplasty with suspected prosthetic loosening/hardware malfunction 2. Deep venous thrombosis ruled out TREATMENT PROVIDED - Fitted with hinged knee brace for daytime use (instructed not to wear at night) - Compression recommended for soft-tissue swelling as tolerated - No new medications prescribed DISCHARGE INSTRUCTIONS Activity: - Use hinged knee brace during daytime activities only; remove at bedtime - Apply compression as tolerated to help reduce swelling - Weight-bearing as tolerated Follow-up: - Urgent orthopedic follow-up with Dr. Lay is required. ED note and imaging have been forwarded to the orthopedic office. Given imaging findings suggestive of prosthetic loosening, evaluation should occur as soon as possible, ideally well before the February appointment. - Continue routine primary care follow-up for coronary artery disease and hyperlipidemia Return to Emergency Department if: - Increasing knee pain - Development of redness, warmth, or drainage from the knee - Fever or chills - Inability to bear weight - Numbness, tingling, or weakness in the leg or foot - New calf pain or swelling DISPOSITION Discharged home in stable condition. CLINICAL SIGNIFICANCE Aseptic loosening is a common cause of late TKA failure (occurring more than two years after surgery) and can result from mechanical stresses, osteolysis secondary to particle debris, or poor bone stock. The radiographic findings of lucency adjacent to prosthetic components combined with fluid collections warrant expedited orthopedic evaluation to determine if revision surgery is indicated. Early detection and intervention may prevent further complications. Prescriptions: No Action atorvastatin 20 mg tablet 20 mg PO DAILY Qty: 90 4RF trazodone 50 mg tablet 50 mg PO BEDTIME Qty: 90 2RF celecoxib [Celebrex] 200 mg capsule 200 mg PO BID 14 Days Qty: 28 0RF Referrals: Luis Daniel Lay MD [Physician, Orthopedics] Referral Note: please see urgently: knee effusion x 3 weeks, XR: New lucency adjacent to the stem of the femoral component and lateral side of the proximal tibial component and stem questionable for loosening. Small joint effusion. Clinical Impression: Effusion of knee joint right; Loose right total knee arthroplasty Baljinder Murcia PA-C [Primary Care Provider, Internal Medicine] Interventions: ED Discharge Assessment Last Done: 01/21/25 11:36 Discharge Date/Time: 01/21/25 10:10 Print Language: Urdu
--- OUTSIDE RECORDS SUMMARY | 2025-01-21 07:53 | XMS_ITS | Patient Health Record ---
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 [place] Section Notes: Nonsmoker, very occasional a lcohol Problems Problem Type SNOMED Code ICD Code Onset Dates Problem Status W/U Status Risk Notes Problem Screening for malignant neoplasm of colon (085038049) Encounter for screening for malignant neoplasm of colon (Z12.11) Active confirmed Problem Preprocedural examination (607207028484577) Preprocedural examination (Z01.818) Active confirmed Plan Of Treatment Future Test Test Name Order Date COLONOSCOPY 02/15/2019 Insurance Providers Payer Name Payer Address Payer Phone Subscriber Number Group Number Insured Name Patient Relationship to Insured Coverage Start Date Coverage End Date [facility] [employer] PROFESSIONAL CLAIMS [address] [place] [address] [id number] OSKAR MONDRAGON Self - patient is the insured Medical (General) History Medical History History ICD Code Denies NM,DM,CVA,Lung disease,renal dise ase Negative screening colonoscopy in 02/[address] Graf Migraines Hyperlipidemia Surgical History Surgery Date(Month/Year) Right knee replacement-Dr. Walker 2003 RAJESH 2014 Right carpal tunnel 2000
--- OUTSIDE RECORDS SUMMARY | 2025-01-21 07:53 | XMS_ITS | Clinical Summary ---
Author Organization [facility] Address [address] [place] [address] Phone Care Team Providers Care Knockout Man Name Role Phone Baljinder Murcia Primary Care [...] Office Visit [facility] at [address] [address] Ofelia Diamond, ELENA Impacted cerumen of right [...] FOBT 10/13/2003 SIGMOIDOSCOPY 10/13/2003 VIRTUAL COLONOSCOPY 10/13/2003 OSTEOPOROSIS SCREENING INITIAL (ONE-TIME) 10/13/2023 COVID-19 VACCINE ( season) 2024 06/19/2024, 2023, 11/06/2022, Additional history exists MAMMOGRAM 01/12/2026 01/13/2024, 12/16, 04/23/2016 Adult Td,Tdap Booster 08/13/2027 08/12/2017 RSV VACCINE Completed 03/22/2023 SMOKING STATUS SCREENING (Once After 26 Yrs) Completed 03/31/2024 PNEUMOCOCCAL VACCINES (50+ years) Completed 06/19/2024 INFLUENZA VACCINE Completed 10/13/2024, , 11/06/2022, Additional history exists ZOSTER VACCINES Completed 10/13/2024, 06/19/2024 HEPATITIS A VACCINES Aged Out No long [...] topic Medical Devices Not on file Insurance [place] [employer] SUPPLEMENT Member Subscriber Plan / Payer (Ef fective 2023-Present) Name:Sweetie Mondragon Relation to Subscriber:Self Name:Sweetie Mondragon Payer ID:[id number] (NAIC) Type:Indemnity Address: [facility] [id number] [place] [id number] MEDICARE PART A & B [employer] MED[employer] SUPPLEMENT MEDICARE PART A & B [employer] MEDEX SUPPLEMENT MEDICARE PART A & B [employer] SUPPLEMENT MEDICARE PART A & B [place] [address] [employer] MEDEX SUPPLEMENT MEDICARE PART A & B [employer] MEDEX SUPPLEMENT MEDICARE PART A & B Care Teams Knockout Man Relationship Specialty Start Date End Date Baljinder Murcia PA [address] [place] [address] PCP - General Physician Certified Income Tax Preparer 05/10/24 Additional Source Comments The information contained in this document represents components of the legal health record. It is not the complete legal health record.[facility]
--- OUTSIDE RECORDS SUMMARY | 2025-01-21 07:53 | XMS_ITS | Clinical Summary ---
Author Organization [facility] Address [address] [place] [address] Phone Care Team Providers Care Word Processor Name Role Phone Donny Knox MD Primary Care Provider [phone] Surgical History Surgery Date Site/Laterality Comments BREAST [...] AM EST Appointment [facility] at [address] [address] Health Maintenance Due Date Last [...] Signed Date: 01/13/2024 11:51 ET Workstation ID: [id number] Transcribed By: Self Edit Transcribed Date: 01/13/2024 11:44 ET Narrative 01/13/2024 11:51 AM EST EXAM: SCREENING MAMMOGRAPHY, BILATERAL HISTORY: SCREENING. Maternal grandmother with history of breast cancer. COMPARISON: 01/10/2023, 11/26/2021, 11/08/2020, 11/03/2019 TECHNIQUE: Synthesized CC and MLO projections of each breast. Tomosynthesis of each breast in the CC and MLO projections. ADDITIONAL IMAGING: None Computer-aided detection was employed with the GLGD Oceen AI 3-D. TISSUE DENSITY: There are scattered [...] Signed Date: 01/13/2024 11:51 ET Workstation ID: [id number] Transcribed By: Self Edit Transcribed Date: 01/13/2024 11:44 ET Donny Knox MD IM BI PROCEDURES Final Result * TIMUR DEXA AXIAL SKELETON (01/11/2023 8:11 AM EST) Anatomical Region Laterality Modality Mammography 01/10/2023 2:51 PM EST Narrative 01/11/2023 8:11 AM EST [facility] Diagnostic Imaging Department [address] [place] [address] Patient: SWEETIE MONDRAGON /Age/Sex: 1960 - 62 - F Unit#: [id number] Location/Status: SPDIMA/REG I [facility]em[facility] Ordering Physician: DONNY KNOX MD [facility] Dexa Axial Skeleton - 01/10/231518 Report Status:Signed [...] probability of hip fracture of 1.1%. Code 62303 Dictating Physician: CHRISTINE ANSARI MD Electronically Signed by: CHRISTINE ANSARI MD Dic Date/Time: 01/11/23809 Sign date/Time: 01/11/23810 Procedure Note Christine Ansari MD - 03/22/2023 [facility] Diagnostic Imaging Department [address] [place] [id number] Patient: SWEETIE MONDRAGON Johann /Age/Sex: 1960 - 62 - F Unit#: [id number] Location/Status: SPDIMAM/REG CLI Mnemonic[facility] Ordering Physician: DONNY KNOX MD Tim[facility] [...] density of the femurs bilaterally is 0.949 gm/[id number] is 94% of that of young normals [...] probability of hip fracture of 1.1%. Code 10183 Dictating Physician: CHRISTINE ANSARI MD Electronically Signed by: CHRISTINE ANSARI MD Dic Date/Time: 01/11/23809 Sign date/Time: 01/11/23810 Donny Knox MD IM BI PROCEDURES Final Result from Last 3 Months or Most Recently Relevant to Health Maintenance Insurance MEDICARE [facility] Care Teams Word Processor Relationship Specialty Start Date End Date Donny Knxo MD [address] [place] [address] PCP - General Internal Medicine 01/13/24
--- NOTE | 2025-01-21 11:34 | PC.NURSE ---
Pt in agreement with dc plan, kayla bandage applied to right knee, pt able to ambulate out of ED with this RN stable without crutches, pt on the phone with ortho to get her follow up in
[2025-01-21 11:36] VITALS: BP 129/60; PULSE 88; RESP 18; TEMP 36.3; O2SAT 99
== END 2025-01-21 10:10 | disposition home or self-care (01) ==
PROVIDERS: Emergency Provider Student in an Organized Health Care Education/Training Program; PCP Physician Assistant
DX: T84.032A Mechanical loosening of internal right knee prosthetic joint, initial encounter (principal); M25.461 Effusion, right knee; X58.XXXA Exposure to other specified factors, initial encounter; Y93.89 Activity, other specified; Y92.89 Other specified places as the place of occurrence of the external cause; Y99.8 Other external cause status
CPT/HCPCS: 73560; 93971; 99283; 99284

== ENCOUNTER → 2025-01-21 07:58 | Outpatient (BNV) | payer MEDICARE, SELFPAY | PROVIDERS: Emergency Provider Student in an Organized Health Care Education/Training Program; PCP Physician Assistant; Visit Provider Radiology Diagnostic Radiology | DX: R22.41 Localized swelling, mass and lump, right lower limb (principal); M25.461 Effusion, right knee; Z96.651 Presence of right artificial knee joint | CPT/HCPCS: 73560; 93971 ==

== ENCOUNTER 2025-01-24 12:53 | Outpatient (AMB) | payer MEDICARE, SELFPAY ==
--- NOTE | 2025-01-24 12:59 | MHC.OFFVIS ---
Vital Signs 01/24/25 13:03 Height 5 ft 2 in Weight 152 lb BMI 27.8 Intake Visit Reasons: ER/F/U- Effusion of knee joint right Intake Note: Sweetie is a 64 year old female who presents today for an ER follow up of right knee effusion. History of RT TKA Revision, performed by Dr. Lay on 05/19/21. Denies injury. Patient reports pain at the lateral aspect of knee that travels across her knee and at times towards the posterior aspect. She complains of a pinching sensation and feels like her knee will give out. Allergies doxycycline (DOXYCYCLINE) Allergy (Unknown, Verified 01/24/25 13:07) RASH Medication List - Last Reconciled 01/24/25 by Lore Vargas PA-C atorvastatin 20 mg PO DAILY trazodone 50 mg PO BEDTIME HPI Comments Details: History of Present Illness The patient is a 64 year old female presenting with severe knee pain that has been ongoing for one month. She is s/p Revision RT TKA 05/[address] Lay. Over the summer she was hiking in [place] and the knee felt fine. It was shortly after where she experienced three episodes of sudden, intense pain on top of the knee, described as a pinching sensation with a charley horse-like contraction of the thigh muscle, which caused her to fall and left her unable to walk for about an hour each time. For the past month, the symptoms have worsened to the point where she cannot walk at all and has not left the house. She experiences constant pain, which is unbearable without medication, and a sensation that her knee will give out when she stands. She reports significant swelling, so severe that a short trip to the foot doctor caused her ankle to swell significantly. Prior to this summer, the patient was in excellent physical condition, hiking 12 to 18 miles per day without pain. Social History - Physical Activity: Previously was highly active, hiking 12-18 miles daily without pain. - Functional Status: Currently has severely limited mobility; she has been unable to leave her house for a month and cannot walk or drive due to pain. [facility] Medical History History of skin cancer Hx of migraines Hyperlipidemia Surgical History Hx of colonoscopy History of total right knee replacement History of carpal tunnel surgery of right wrist History of meniscectomy of right knee History of bunionectomy of left great toe History of hysterectomy Family History Mother No problems noted. Father No problems noted. 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 - Musculoskeletal: Reports constant, severe pain on top of the knee, described as a pinching feeling or a charley horse. - Reports significant swelling from the knee down to the ankle. - Reports a feeling of instability and that the knee will give out upon standing. Physical Exam Exam Exam: Physical Exam - Musculoskeletal: Examination of the knee reveals slight defect along the distal quadriceps muscle area. NO erythema or joint effusion present. -ROM 0-120 - There is significant quadriceps weakness on strength testing. - No tenderness to palpation is noted around the joint line or across the knee. - No signifiant ligamentous instability -Calf supple non tender. Vital Signs: BMI result Body Mass Index 27.8 Results Reviewed Results Reviewed: XR knee RT 2V IMPRESSION: Right 3 component knee replacement. New lucency adjacent to the stem of the femoral component and lateral side of the proximal tibial component and stem questionable for loosening. Small joint effusion. Assessment & Plan Assessment & Plan (1) Status post revision of total knee: Code(s): Z96.659 - Presence of unspecified artificial knee joint Category: Surgical Qualifiers: Laterality: right Qualified Code(s): Z96.651 - Presence of right artificial knee joint Plan Dr. Lay was available to see the patient with me today. We discussed the extent of her knee pain and it is unusual she is experiencing this much discomfort and was previously doing so well. At this time we will order a bone scan to further evaluate the prosthesis to see if there is any further evidence of loosening. There does not appear to be any evidence of acute infection at this time. I will send a prescription for Celebrex to the pharmacy she will take twice a day for 2 weeks. Once the scan is complete I will see her back to discuss the next step in her treatment. Consent Patient was informed and verbally consented to the use of an ambient scribe for clinic note documentation during this visit. Orders: Orders NM bone scan whole body Today Z96.659 - Presence of unspecified artificial knee joint Coding Level of Care Code Est Pt Level 3 (45975) Add On Problem Visit Only Diagnoses Status post revision of total replacement of right knee Z96.651 Laterality: right
[2025-01-24 13:03] VITALS: BMI 27.8
== END 2025-01-24 14:51 | disposition home or self-care (01) ==
LOC: HO.HOS 12:54
PROVIDERS: PCP Physician Assistant; Visit Provider Physician Assistant
DX: M25.461 Effusion, right knee (principal); Z96.651 Presence of right artificial knee joint
CPT/HCPCS: 99213; G2211

== ENCOUNTER → 2025-01-24 12:53 | Outpatient (BNVA) | payer MEDICARE, SELFPAY | PROVIDERS: PCP Physician Assistant; Visit Provider Physician Assistant | DX: M25.561 Pain in right knee (principal); Z96.651 Presence of right artificial knee joint | CPT/HCPCS: 99212 ==

== ENCOUNTER → 2025-01-30 09:47 | Outpatient (REF) | payer MEDICARE, SELFPAY ==
--- NOTE | ~2025-01-30 | NM_ITS ---
EXAMINATION: NM BONE SCAN WHOLE BODY THREE PHASE HISTORY: Z96.659 - Presence of unspecified artificial knee joint. TECHNIQUE: A three-phase bone scan of the knees was performed following the intravenous administration of 25 mCi technetium 99m-MDP. COMPARISON: Correlation is made with plain films of the right knee dated 08/21/2021 and 01/21/2025. FINDINGS: There is increased blood flow to the right knee. Blood pool images demonstrate increased periprosthetic uptake involving both the femoral and tibial components of the right knee arthroplasty. Delayed images demonstrate increased periprosthetic uptake involving the femoral and tibial components. Findings are consistent with infection or loosening. NM/VA bone 3 phase IMPRESSION: Increased uptake about the femoral and tibial components of the right total arthroplasty on all 3 phases, compatible with infection or loosening. Electronically signed by: Taco Zhang MD 01/30/2025 01:56 PM EST
--- OUTSIDE RECORDS SUMMARY | 2025-01-30 11:28 | XMS_ITS | Clinical Summary ---
Author Organization [facility] Address [address] [place] [address] Phone Care Team Providers Care Contact Manager Name Role Phone Donny Knox MD Primary Care Provider [phone] Surgical History Surgery Date Site/Laterality Comments BREAST [...] AM EST [facility]ointment [facility] at [address] [address] Health Maintenance Due Date Last [...] Signed Date: 01/13/2024 11:51 ET Workstation ID: [id number] Transcribed By: Self Edit Transcribed Date: 01/13/2024 11:44 ET Narrative 01/13/2024 11:51 AM EST EXAM: SCREENING MAMMOGRAPHY, BILATERAL HISTORY: SCREENING. Maternal grandmother with history of breast cancer. COMPARISON: 01/10/2023, 11/26/2021, 11/08/2020, 11/03/2019 TECHNIQUE: Synthesized CC and MLO projections of each breast. Tomosynthesis of each breast in the CC and MLO projections. ADDITIONAL IMAGING: None Computer-aided detection was employed with the [employer] AI 3-D. TISSUE DENSITY: There are scattered [...] Signed Date: 01/13/2024 11:51 ET Workstation ID: [id number] Transcribed By: Self Edit Transcribed Date: 01/13/2024 11:44 ET Donny Knox MD IM BI PROCEDURES Final Result * TIMUR DEXA AXIAL SKELETON (01/11/2023 8:11 AM EST) Anatomical Region Laterality Modality Mammography 01/10/2023 2:51 PM EST Narrative 01/11/2023 8:11 AM EST [facility] Diagnostic Imaging Department [address] [place] [address] Patient: SWEETIE MONDRAGON /Age/Sex: 1960 - 62 - F Unit#: [id number] Location/Status: SPDIMA/REG I Mnemonic[facility] Ordering Physician: DONNY KNOX MD [facility] Dexa Axial Skeleton - 01/10/231518 Report Status:Signed [...] probability of hip fracture of 1.1%. Code 24334 Dictating Physician: CHRISTINE ANSARI MD Electronically Signed by: CHRISTINE ANSARI MD Dic Date/Time: 01/11/23809 Sign date/Time: 01/11/23810 Procedure Note Christine Ansari MD - 03/22/2023 [facility] Diagnostic Imaging Department [address] [place] [id number] Patient: SWEETIE MONDRAGON Johann /Age/Sex: 1960 - 62 - F Unit#: [id number] Location/Status: SPDIMAM/REG CLI Mnemonic[facility] Ordering Physician: DONNY KNOX MD [facility] Dexa [...] density of the femurs bilaterally is 0.949 gm/ct5jchso is 94% of that of young normals [...] probability of hip fracture of 1.1%. Code 29205 Dictating Physician: CHRISTINE ANSARI MD Electronically Signed by: CHRISTINE ANSARI MD Dic Date/Time: 01/11/23809 Sign date/Time: 01/11/23810 Donny Knox MD IM BI PROCEDURES Final Result from Last 3 Months or Most Recently Relevant to Health Maintenance Insurance MEDICARE [facility] Care Teams Contact Manager Relationship Specialty Start Date End Date Donny Knox MD [address] [place] [address] PCP - General Internal Medicine 01/13/24
--- OUTSIDE RECORDS SUMMARY | 2025-01-30 11:28 | XMS_ITS | Clinical Summary ---
Author Organization [facility] Address [address] [place] [address] Phone Care Team Providers Care Video Production Specialist Name Role Phone Baljinder Murcia Primary Care [...] Description 01/08/2025 3:20 PM EST Office Visit [facility] at [address] [address] Ofelia Diamond, ELENA Impacted cerumen of right [...] topic Medical Devices Not on file Insurance [employer] CROSS MEDEX SUPPLEMENT MEDICARE PART A & B [employer] MED[employer] SUPPLEMENT MEDICARE PART A & B [employer] MEDEX SUPPLEMENT MEDICARE PART A & [place] [place] [address] [employer] MEDEX SUPPLEMENT MEDICARE PART A & [place] [address] [employer] MEDEX SUPPLEMENT MEDICARE PART A & B [employer] MEDEX SUPPLEMENT MEDICARE PART A & B Care Teams Video Production Specialist Relationship Specialty Start Date End Date Baljinder Murcia PA [address] [place] [address] PCP - General Physician Pharmacologist 05/10/24 Additional Source Comments The information contained in this document represents components of the legal health record. It is not the complete legal health record.[facility]
--- OUTSIDE RECORDS SUMMARY | 2025-01-30 11:29 | XMS_ITS | Patient Health Record ---
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[place] [employer] Section Notes: Nonsmoker, very occasional a lcohol Problems Problem Type SNOMED Code ICD Code Onset Dates Problem Status W/U Status Risk Notes Problem Screening for malignant neoplasm of colon (872273813) Encounter for screening for malignant neoplasm of colon (Z12.11) Active confirmed Problem Preprocedural examination (584953322014078) Preprocedural examination (Z01.818) Active confirmed Plan Of Treatment Future Test Test Name Order Date COLONOSCOPY 02/15/2019 Insurance Providers Payer Name Payer Address Payer Phone Subscriber Number Group Number Insured Name Patient Relationship to Insured Coverage Start Date Coverage End Date [facility] [employer] CLAIM[employer] [address] [place] [address] [id number] OSKAR MONDRAGON Self - patient is the insured Medical (General) History Medical History History ICD Code Denies ME,DM,CVA,Lung disease,renal dise ase Negative screening colonoscopy in 02/[address] Graf Migraines Hyperlipidemia Surgical History Surgery Date(Month/Year) Right knee replacement-Dr. Walker 2003 RAJESH 2014 Right carpal tunnel 2000
== END ==
LOC: HO.NUCMED 09:47
PROVIDERS: PCP Physician Assistant; Visit Provider Physician Assistant
DX: Z96.651 Presence of right artificial knee joint (principal)
CPT/HCPCS: 78315; A9503

== ENCOUNTER → 2025-01-30 09:52 | Outpatient (BNV) | payer MEDICARE, SELFPAY | PROVIDERS: PCP Physician Assistant; Visit Provider Radiology Diagnostic Radiology | DX: Z96.651 Presence of right artificial knee joint (principal) | CPT/HCPCS: 78315 ==